=== PATIENT | female | born 1940 | race Caucasian/White ===

== ENCOUNTER 2016-08-07 07:18 | Emergency (ER) | payer OTHER ==
[~2016-08-07 07:18] MED LIST: BACLOFEN20 MG PO; BG MC; COL250 PO; COUMADIN2 MG PO; COUMADIN5 MG PO; ECO81 PO; GLU500 PO; GLUCOVANCE1 TA2 PO; HUMULIN R100 U/1 M1 SC; HYD25 PO; HYDROCHLOROTH12.5 M2 PO; L20I IV; LIPI10 PO; LIPI20 PO; LOV30I SC; LYRICA50 M1 PO; MAC100 PO; MAG PO; NIFEDICAL XL30 MG PO; NIFEDIPINE ER30 MG PO; NORCO1 TA2 PO; OMEPRAZOLE DR20 M1 PO; OMEPRAZOLE PO; ZES20 PO; ZESTRIL20 MG PO; [UNRECOGNIZED DRUG - OTHER] PO
[2016-08-07 08:36] VITALS: BP 135/45
== END 2016-08-07 08:36 | disposition home or self-care (01) ==
LOC: ED 07:18
DX: M25.512 Pain in left shoulder (principal); M50.30 Other cervical disc degeneration, unspecified cervical region; M19.90 Unspecified osteoarthritis, unspecified site; I48.91 Unspecified atrial fibrillation; E11.9 Type 2 diabetes mellitus without complications; I10 Essential (primary) hypertension; Z79.84 Long term (current) use of oral hypoglycemic drugs; Z79.01 Long term (current) use of anticoagulants
CPT/HCPCS: Q0092

== ENCOUNTER 2017-01-10 10:53 | Emergency (ER) | payer OTHER ==
[2017-01-10 13:33] VITALS: BP 122/52
== END 2017-01-10 13:33 | disposition home or self-care (01) ==
LOC: ED 10:53
DX: M50.10 Cervical disc disorder with radiculopathy, unspecified cervical region (principal); M25.511 Pain in right shoulder; R91.8 Other nonspecific abnormal finding of lung field; I10 Essential (primary) hypertension; E11.9 Type 2 diabetes mellitus without complications; E78.00 Pure hypercholesterolemia, unspecified; M19.90 Unspecified osteoarthritis, unspecified site; Z95.0 Presence of cardiac pacemaker; Z79.899 Other long term (current) drug therapy; Z86.79 Personal history of other diseases of the circulatory system; Z79.01 Long term (current) use of anticoagulants
CPT/HCPCS: Q0092

== ENCOUNTER 2018-02-10 16:08 | Emergency (ER) | payer OTHER ==
[~2018-02-10] VITALS: Ht 149.9 cm; Wt 42.2 kg
[2018-02-10 16:29] VITALS: Ht 149.9 cm; Wt 42.2 kg
[2018-02-10 18:33] LABS: BASOPHIL % 0.4 % (0-2); RED CELL DISTRIBUTION WIDTH 14.3 % (11.5-14.5)
[2018-02-10 18:37] LABS: UA SPECIFIC GRAVITY 1.025 (1.005-1.035); microscopic required? YES; urine erythrocyte 1+ (NEGATIVE)
[2018-02-10 18:37] LABS: PLATELET COUNT 467 x10^3mcL (130-400)
[2018-02-10 19:02] LABS: ALKALINE PHOSPHATASE 88 U/L (46-116); AST/SGOT 31 U/L (15-37); BILIRUBIN TOTAL 0.17 mg/dL (0.20-1.00); CALCIUM 8.9 mg/dL (8.5-10.1); CARBON DIOXIDE 26.3 mmol/L (21-32); CHLORIDE SERUM 103 mmol/L (98-107); CREATININE SERUM 1.8 mg/dL (0.6-1.0); GLUCOSE SERUM 119 mg/dL (74-106); POTASSIUM SERUM 4.2 mmol/L (3.5-5.1); SODIUM SERUM 139 mmol/L (136-145); TOTAL PROTEIN, SERUM 7.2 g/dL (6.4-8.2)
[2018-02-10 19:04] LABS: ALBUMIN 3.2 g/dL (3.4-5.0)
[2018-02-10 19:18] VITALS: BP 127/47
[2018-02-10 19:29] LABS: ALT/SGPT 40 U/L (14-59)
== END 2018-02-10 20:33 | disposition home or self-care (01) ==
LOC: ED 16:08
PROVIDERS: Emergency Medicine
DX: R42 Dizziness and giddiness (principal); D68.32 Hemorrhagic disorder due to extrinsic circulating anticoagulants; I48.91 Unspecified atrial fibrillation; N28.9 Disorder of kidney and ureter, unspecified; I10 Essential (primary) hypertension; E11.9 Type 2 diabetes mellitus without complications; E78.00 Pure hypercholesterolemia, unspecified; M19.90 Unspecified osteoarthritis, unspecified site; Z86.73 Personal history of transient ischemic attack (TIA), and cerebral infarction without residual deficits
CPT/HCPCS: 36415; J8597; Q0162

== ENCOUNTER 2018-10-24 11:43 | Inpatient (IN) | payer OTHER, MEDICAID ==
[~2018-10-24] VITALS: Ht 124.5 cm; Wt 43.1 kg
[2018-10-24 11:55] VITALS: Ht 124.5 cm; Wt 43.1 kg
[2018-10-24 12:35] LABS: BASOPHIL % 0.1 % (0-2)
[2018-10-24 12:38] LABS: PLATELET COUNT 458 x10^3mcL (130-400); RED CELL DISTRIBUTION WIDTH 19.5 % (11.5-14.5)
[2018-10-24 12:40] LABS: ALBUMIN 3.5 g/dL (3.4-5.0); ALKALINE PHOSPHATASE 127 U/L (46-116); ALT/SGPT 105 U/L (14-59); AST/SGOT 42 U/L (15-37); BILIRUBIN TOTAL 0.16 mg/dL (0.20-1.00); CARBON DIOXIDE 21.8 mmol/L (21-32); CHLORIDE SERUM 108 mmol/L (98-107); CREATININE SERUM 1.3 mg/dL (0.6-1.0); GLUCOSE SERUM 129 mg/dL (74-106); SODIUM SERUM 140 mmol/L (136-145); TOTAL PROTEIN, SERUM 7.1 g/dL (6.4-8.2)
--- NOTE | 2018-10-24 12:40 | NUR ---
PT PRESENTS TO BED 11 FOR EVALUATION OF WEAKNESS AND LOW HGB PER NOTE SENT BY PMD; PT HAD HGB OF 8.5 FROM PREVIOUS LAB DRAWS; PT SON HERE STATES PT HAS BEEN FEELING "WEAK/BAD" ON AND OFF FOR ABOUT 3 WEEKS; PROVIDER AT BEDSIDE FOR INTERVIEW AND FURTHER STUDIES
[2018-10-24 12:45] LABS: POTASSIUM SERUM 5.8 mmol/L (3.5-5.1)
--- NOTE | 2018-10-24 12:55 | NUR ---
PT ORDERS REC'D; PT RECTAL EXAM NOTED TO BE NEG FOR TALYA BLOOD WITH GUIAC NEG; WAITING ON FURTHER LAB RESULTS
--- NOTE | 2018-10-24 13:15 | NUR ---
REC'D RESULT OF ELEVATED K: 5.8, ED PROVIDER AWARE; HOSPITALIST AT BEDSIDE
--- NOTE | 2018-10-24 14:50 | NUR ---
BED ASSIGNMENT REC'D; PT TO CT PRIOR TO GOING TO FLOOR, IVF COMPLETED
--- NOTE | 2018-10-24 14:57 | NUR ---
PT STEPHANIE CT WELL.WAITING FOR TRANSPORT
--- NOTE | 2018-10-24 15:05 | NUR ---
REPORT GIVEN TO VERONIKA PARK, INFORMED OF 5.8 POTASSIUM AND THAT ED PROVIDER AND HOSPITALIST IS AWARE OF VALUE AND ARE NOT TREATING IT AT THIS TIME; PT PREP FOR TRANSPORT
[2018-10-24] MEDS ORDERED: NOR10 PO (15:18)
[2018-10-24] MEDS ORDERED: LASIX40 MG PO (15:21)
[2018-10-24] MEDS ORDERED: ULTRAM50 MG PO (15:22)
[2018-10-24] MEDS ORDERED: GLIPIZIDE5 M2 PO (15:22)
[2018-10-24] MEDS ORDERED: ZESTRIL20 MG PO (15:23)
[2018-10-24] MEDS ORDERED: LIPITOR20 MG PO (15:23)
[2018-10-24 16:01] VITALS: BP 135/40
--- NOTE | 2018-10-24 16:12 | NUR ---
RECEIVED PT FROM ER, PT ADMIT FOR ANEMIA, PT IS A/OX4 VERBAL RESPONSIVE, LUNG SOUND CLEAR BILATERAL, NO COUGH, NO SOB, PT IS ON TELE 13, 100% PACED. NRS. DENY ANY CHEST PAIN OR DISCOMFORT, BOWEL SOUND PRESENT ALL 4 QUADRANTS, NO DISTENTION, NO TENDER. PEDAL PULSE PRESENT BOTH FEET, NO EDEMA, IV AT RIGHT FA, NO LEAKING, NO INFILTRAITON. ALL ADLS ASSIST, ALL NEED MET, CALL LIGHT IN REACH, WILL CONTINUE TO MONITOR.
[2018-10-24 17:04] LABS: UA SPECIFIC GRAVITY <=1.005 (1.005-1.035); microscopic required? YES; urine erythrocyte NEGATIVE (NEGATIVE)
--- NOTE | 2018-10-24 17:39 | NUR ---
AT 1615 - TOOK OVER CARE OF PATIENT. IV INFUSION OF NS COMMENCED AT 50 ML/HR. PATIENT ASSISTED TO BATHROOM TO VOID. AMBULATORY WITH ASSISTANCE. PATIENT GIVEN VELTASSA 8.4 G PER EMAR FOR K+ OF 5.8 AT 1630 - URINE COLLECTED AND TAKEN TO LAB FOR UA. AT 1720 - RECEIVED CALL FROM DR RAMSEY WITH THE FOLLOWING ORDERS: - CONSENT FOR EGD AND COLONOSCOPY - CLEAR LIQUID DIET TONIGHT. - DULCOLAX 5 MG X 3 TAB PO NOW. - MOVI-PREP, FIRST PART NOW. - AFTER 6 HOURS, GIVE SECOND PART MOVIPREP. PATIENT IS TO DRINK DRINK WATER PER INSTRUCTIONS ON MOVIPREP PACKET. - DULCOLAX 5 MG X 3 TAB PO,, 6 HRS AFTER WITH SECOND PART OF MOVIPREP. - NPO AFTER 0400 HR. - EGD AND COLONOSCOPY AT 1000 HR TOMORROW. AT 1750 - SPOKE WITH PATIENT'S SON AND EXPLAINED TO HIM PLAN. HE WILL BE IN WITHIN THE HOUR FOR CONSENT SIGNING. SPOKE WITH PATIENT USING [place] DRUM REEL CUTTER. EXPLAINED TO PATIENT PLAN OF CARE.
--- NOTE | 2018-10-24 19:08 | NUR ---
CONSENTS FOR EGD, COLONOSCOPY AND MODERATE SEDATION SIGNED BY PATIENT AND SON. SON WAS TRANSLATING IN [place]EL[place]. PATIENT GIVEN DULCOLAX TABLETS AND MOVI PREP COMMENCED. WILL ENDORSE CARE TO NIGHT NURSE.
--- NOTE | 2018-10-24 19:30 | NUR ---
RECIEVEED PATIENT AT START OF SHIFT A/O X4, UKRAINIAN SPEAKING, FAMILY AT BEDSIDE TO TRANSLATE. ON TELE 13, 100% PACED. NO SOB ON RA, LUNGS CTAB. PATIENT IS DRINKING FIRST DOSE OF BOWEL PREP, SECOND DOSE DUE AT 0200 10/24. BEDISDE COMMODE PROVIDED FOR PATIENT PER REQUEST. IV TO RH IS INFUSING WITHOUT ERYTHEMA OR INFILTRATION. BED LOCKED AND IN LOWEST POSITION. CALL LIGHT AND BEDSIDE TABLE WITHIN REACH. SAFETY AND USE OF CALL LIGHT REINFORCED.
[2018-10-24 21:13] VITALS: BP 143/42
--- NOTE | 2018-10-24 21:30 | NUR ---
BLOOD SUGAR 162, INSULIN HELD DUE TO NPO STATUS.
--- NOTE | 2018-10-25 02:18 | NUR ---
PATIENT GIVEN SECOND DOSE OF BOWEL PREP.
--- NOTE | 2018-10-25 04:00 | NUR ---
SECOND BOWEL PREP COMPLETED. PATIENT NPO STATUS AT THI TIME.
[2018-10-25 05:56] VITALS: BP 164/50
--- NOTE | 2018-10-25 06:27 | NUR ---
PATIENT SLEPT INTERMITTENTLY THROUGH THE NIGHT WITH FREQUENT LOOSE STOOLS. DENIES PAIN AT THIS TIME. IV INFUSING WITHOUT ERYTHEMA OR INFILTRATION. NPO SINCE 0400. EGD/ COLONOSCOPY TODAY AT 1000. CONSENT FOR PROCEDURE AND ANESTHESIA IS SIGNED AND IN CHART. PRE-OP CHECKLIST COMPLETED. BED LOCKED AND IN LOWEST POSIITON. CALL LIGHT AND BEDSIDE TABLE WITHIN REACH. WILL ENDORSE CARE TO DAY SHIFT NURSE.
[2018-10-25 07:36] LABS: CALCIUM 9.5 mg/dL (8.5-10.1); CHLORIDE SERUM 116 mmol/L (98-107); CREATININE SERUM 0.9 mg/dL (0.6-1.0); GLUCOSE SERUM 151 mg/dL (74-106); PHOSPHOROUS 4.1 mg/dL (2.5-4.9); POTASSIUM SERUM 4.9 mmol/L (3.5-5.1); SODIUM SERUM 146 mmol/L (136-145)
[2018-10-25 07:55] LABS: BASOPHIL % 0.2 % (0-2)
[2018-10-25 07:56] LABS: PLATELET COUNT 415 x10^3mcL (130-400); RED CELL DISTRIBUTION WIDTH 19.4 % (11.5-14.5); rbc morphology (normal/abnorm) ABNORMAL (NORMAL)
--- NOTE | 2018-10-25 08:13 | NUR ---
AAO TIMES 4. TELE # 13 DEMAND PACER, OCCASIONALLY PACING. LUNGS CTA. NO SOB. O2 SAT N RA 98%. BS'S ACTIVE TIMES 4. PATIENT STATES HER STOOLS ARE CLEAR, AND HER PREP IS COMPLETE FOR EGD/COLONSCOPY. CONSENTS SIGNED. PERIPHERAL PULSES PALPABLE. NO EDEMA. NO C/O PAIN. NO SOB.
[2018-10-25 08:16] VITALS: BP 136/51
[2018-10-25 09:13] LABS: TOTAL IRON BINDING CAPACITY 420 ug/dL (250-450)
[2018-10-25 09:18] LABS: IRON 12 ug/dL (50-170)
[2018-10-25 11:55] VITALS: BP 140/56
[2018-10-25 16:49] VITALS: BP 136/52
--- NOTE | 2018-10-25 18:37 | NUR ---
AAO TIMES 4. TELE # 13 JUNCTIONAL WITH DEMAND PACING. VS'S STABLE. NO SOB. COOPERTIVE. NO C/O PAIN. WATCHING TV. TOLERATED DINNER, REG DIET. IV SITE RFA 20 HERBERT PATENT, CDI.
--- NOTE | 2018-10-25 19:00 | NUR ---
RECEIVED PT FROM DAY SHIFT RN. PT ALERT AND ORIENTED TO PERSON PLACE TIME AND SITUATION. LEBANESE SPEAKING AND CURRENTLY RESTING IN BED. PT DENIES CHEST PAIN, SHORTNESS OF BREATH ON ROOM AIR. BREATHING IS EVEN AND UNLABORED. PT DENIES DIZZINESS, HEADACHE, AND IS AMBULATORY TO BEDSIDE COMMODE WITHOUT ASSIST. INSTRUCTED PT TO CALL IF FEELING DIZZY OR LIGHTHEADED AND IF SHE NEEDS ASSISTANCE WITH AMBULATING. BOWEL SOUNDS ARE ACTIVE X4. PT DENIES ABD PAIN AT THIS TIME. TELE #[address] SAFETY MEASURES ARE IN [place]CE. BED IS IN THE LOWEST POSITION. CALL LIGHT IS WITHIN REACH. WILL CONTINUE TO MONITOR PT.
[2018-10-25 20:36] VITALS: BP 126/67
--- NOTE | 2018-10-26 00:43 | NUR ---
PT RESTING IN BED WITH EYES CLOSED. NO FACIAL GRIMMACING NOTED. BREATHING IS EVEN AND UNLABORED. CALL LIGHT IS WITHIN REACH.
[2018-10-26 05:34] VITALS: BP 153/57
[2018-10-26 07:00] LABS: CALCIUM 8.9 mg/dL (8.5-10.1); CARBON DIOXIDE 16.6 mmol/L (21-32); CHLORIDE SERUM 115 mmol/L (98-107); CREATININE SERUM 0.8 mg/dL (0.6-1.0); GLUCOSE SERUM 122 mg/dL (74-106); POTASSIUM SERUM 4.7 mmol/L (3.5-5.1); SODIUM SERUM 144 mmol/L (136-145)
--- NOTE | 2018-10-26 07:39 | NUR ---
AAO TIMES 4. TELE # 13 DEMAND PACING, RATE 80'S. LUNGS CTA. NO SOB. O2 SAT ON RA 97%. BS'S ACTIVE TIMES 4. BETTS WITH SLIGHT GENERALIZED WEAKNESS. PERIPHERAL PULSES PALPABLE. NO EDEMA. NO C/O PAIN. NO SOB. VS'S STABLE.
[2018-10-26 07:59] LABS: BASOPHIL % 0.3 % (0-2); PLATELET COUNT 382 x10^3mcL (130-400)
[2018-10-26 08:50] LABS: RED CELL DISTRIBUTION WIDTH 19.3 % (11.5-14.5)
[2018-10-26 08:52] LABS: rbc morphology (normal/abnorm) ABNORMAL (NORMAL)
--- NOTE | 2018-10-26 09:01 | NUR ---
Nutrition Note: Nursing trigger received for poor PO intake >3 days on 10/26/18. Pt. admitted with anemia per H and P documentations. No reported GI distress and PO intake 50-80% x 5 meals. Based on nutritional screening, pt. does not meet high risk criteria and will be assessed as low risk with initial assessment due 11/02/18.
[2018-10-26 09:25] VITALS: BP 134/48
[2018-10-26 13:17] VITALS: BP 131/43
--- NOTE | 2018-10-26 15:13 | NUR ---
ONE UNIT OF PRBC WAS STARTED AT 1220 FOR H&H OF 6.9/21, HELLEN WAS MADE AWARE AND SHE ORDERED ONE UNIT. NO TRANFUSION REACTIONS NOTED, VS'S REMAINED STABLE. THE UNIT FINISHED AT 1500, AND A CBC WAS ORDERED FOR 1600 PER HELLEN DUNCAN SODA WORKER ORDERS.
[2018-10-26 16:02] LABS: BASOPHIL % 0.6 % (0-2); PLATELET COUNT 329 x10^3mcL (130-400)
[2018-10-26 16:05] LABS: RED CELL DISTRIBUTION WIDTH 20.9 % (11.5-14.5)
[2018-10-26 16:14] LABS: rbc morphology (normal/abnorm) ABNORMAL (NORMAL)
[2018-10-26 16:16] LABS: ovalocyte/elliptocyte 1+; tear drop cell (dacryocyte) 1+
[2018-10-26 17:47] VITALS: BP 161/48
--- NOTE | 2018-10-26 17:49 | NUR ---
AAO TIMES 4. TELE # 13 SR. VS'S STABLE. NO SOB. NO C/O PAIN. HER SON IS PRESENT, SUPPORTIVE. IV SITE RFA CDI. COOPERATIVE.
--- NOTE | 2018-10-26 20:00 | NUR ---
PT A/A/O X4. DENIES DIZZINESS AND HEADACHE THUS FAR. BREATH SOUNDS CLEAR. BREATHING EVEN AND UNLABORED ON ROOM AIR. DENIES CHEST PAIN AND PRESSURE. BOWEL SOUNDS ACTIVE. NO C/O N/V AND ABDOMINAL PAIN. ADMITS TO GENERALIZED WEAKNESS IMPROVING. IV INTACT ON THE RIGHT FOREARM INFUSING WITH NS AT 50 ML/HR. MADE PT COMFORTABLE. PLACED CALL LIGHT WITH IN REACH. WILL CONTINUE TO MONITOR.
[2018-10-26 20:48] VITALS: BP 143/57
--- NOTE | 2018-10-27 00:54 | NUR ---
PT RESTING WITH EYES CLOSED. NO DISTRESS AND DISCOMFORT NOTED. WILL CONTINUE TO MONITOR.
[2018-10-27 05:26] VITALS: BP 166/61
--- NOTE | 2018-10-27 06:00 | NUR ---
PT BLOOD PRESSURE 166/61. GAVE PT 0900 SCHEDULED HYDROCHLOROTHIAZIDE PO RIGHT NOW. PT TOLERATED IT WELL. WILL ENDORSE TO THE AM NURSE ACCORDINGLY. .
[2018-10-27 07:22] LABS: BASOPHIL % 0.3 % (0-2); PLATELET COUNT 379 x10^3mcL (130-400)
[2018-10-27 07:29] LABS: RED CELL DISTRIBUTION WIDTH 20.3 % (11.5-14.5)
[2018-10-27 07:45] VITALS: BP 156/39
[2018-10-27 07:53] LABS: CALCIUM 9.3 mg/dL (8.5-10.1); CARBON DIOXIDE 18.7 mmol/L (21-32); CHLORIDE SERUM 114 mmol/L (98-107); CREATININE SERUM 0.8 mg/dL (0.6-1.0); GLUCOSE SERUM 107 mg/dL (74-106); POTASSIUM SERUM 4.4 mmol/L (3.5-5.1); SODIUM SERUM 145 mmol/L (136-145)
[2018-10-27 09:02] VITALS: BP 156/39
--- NOTE | 2018-10-27 10:09 | NUR ---
PATIENTS IV TO R ARM, INFILTRATED AT THIS TIME. ASSESSED AND FLUSHED AMD NOT PATENT. PATIENTS ARM ELEVATED AT THIS TIME, AND IV RESTARTED TO RFA. IV PATENT AND FLUSHES WELL. WILL CONTINUE TO MONITOR.
--- NOTE | 2018-10-27 10:34 | NUR ---
PATIENT STATED THAT THEIR ARM WAS IN PAIN. IV ASSESSED AND ARM SWOLLEN. IV REMOVED AND AR ELEVATED. PT STABLE, WILL CONTINUE TO MONITOR.
[2018-10-27] MEDS ORDERED: FER300 PO (11:46)
[2018-10-27] MEDS ORDERED: COL100 PO (11:53)
[2018-10-27 12:27] VITALS: BP 167/41
[2018-10-27 12:54] VITALS: BP 156/39
--- NOTE | 2018-10-27 14:18 | NUR ---
PATIENT DISCHARGE INSTRUCTIONS GIVEN AT THIS TIME. PATIENTS NEW PRESCRIPTION PROVIDED AND EDUCATED ON MEDICATIONS TO CONTINUE TO USE. DISCHARGE FORMS SIGNED AND PLACED IN PATIENTS CHART AT THIS TIME. PATIENTS IV AND TELE REMOVED AT THIS TIME. PATIENT IS FREE OF ANY SIGNS OF DISTRESS. PATIENT GAVE UNDERSTANDING AND HAD NO QUESTIONS AT THIS TIME. PATIENTS BELONGINGS WITH PATIENT AT THIS TIME. PATIENT STABLE, WILL CONTINUE TO MONITOR AND DISCHARGE AT THIS TIME.
== END 2018-10-27 14:33 | disposition home or self-care (01) | DRG 377 ==
LOC: ED 11:43 → MU 13:29 → DU 13:29
PROVIDERS: Emergency Medicine; Internal Medicine; ADMIT Internal Medicine
PROC: 0DBL8ZX Excision of Transverse Colon, Via Natural or Artificial Opening Endoscopic, Diagnostic (ICD-10-PCS; 2018-10-25)
PROC: 0DB68ZX Excision of Stomach, Via Natural or Artificial Opening Endoscopic, Diagnostic (ICD-10-PCS; principal; 2018-10-25 11:00)
PROC: 0DBP8ZX Excision of Rectum, Via Natural or Artificial Opening Endoscopic, Diagnostic (ICD-10-PCS; 2018-10-25 11:00)
PROC: 30233N1 Transfusion of Nonautologous Red Blood Cells into Peripheral Vein, Percutaneous Approach (ICD-10-PCS; 2018-10-26)
DX: K29.61 Other gastritis with bleeding (principal); N17.0 Acute kidney failure with tubular necrosis; E11.9 Type 2 diabetes mellitus without complications; M19.90 Unspecified osteoarthritis, unspecified site; E78.00 Pure hypercholesterolemia, unspecified; I10 Essential (primary) hypertension; K62.1 Rectal polyp; K63.5 Polyp of colon; K57.30 Diverticulosis of large intestine without perforation or abscess without bleeding; R62.7 Adult failure to thrive; D64.9 Anemia, unspecified; Z95.2 Presence of prosthetic heart valve; Z95.0 Presence of cardiac pacemaker; Z86.73 Personal history of transient ischemic attack (TIA), and cerebral infarction without residual deficits; Z79.01 Long term (current) use of anticoagulants; Z79.84 Long term (current) use of oral hypoglycemic drugs
CPT/HCPCS: 43235; 45378; 82962; G0378; J1200; J1610; J1815; J2250; J2310; J2916; J3010; J3490; J7030; J7050; P9016; Q0092

== ENCOUNTER 2018-11-01 21:32 | Inpatient (IN) | payer OTHER ==
[~2018-11-01] VITALS: Ht 149.9 cm; Wt 41.4 kg
[~2018-11-01 21:32] MED LIST changes: +COL100 PO; +FER300 PO; +GLIPIZIDE5 M2 PO; +LASIX40 MG PO; +LIPITOR20 MG PO; +NOR10 PO; +ULTRAM50 MG PO
--- NOTE | 2018-11-01 22:04 | NUR ---
PT IN ED FOR VOMITTING X1 TODAY, AND PER DAUGHTER PT HAS NOT BEEN ACTING NORMAL SINCE LAST NIGHT. PER DAUGHTER PT WAS ADMITTED HERE LAST WEEK AND HAS BEEN ON NEW MEDICATION, IRON PILLS, STOOL SOFTENER, AND PER ABD FOR UTI. PT STS NO CP, NO NEURO DEFICITS.
[2018-11-01 22:34] LABS: CALCIUM 10.1 mg/dL (8.5-10.1); CARBON DIOXIDE 20.9 mmol/L (21-32); CHLORIDE SERUM 105 mmol/L (98-107); CREATININE SERUM 1.3 mg/dL (0.6-1.0); GLUCOSE SERUM 111 mg/dL (74-106); POTASSIUM SERUM 5.3 mmol/L (3.5-5.1); SODIUM SERUM 140 mmol/L (136-145)
[2018-11-01 22:36] LABS: BASOPHIL % 0.2 % (0-2); PLATELET COUNT 400 x10^3mcL (130-400)
[2018-11-01 22:39] LABS: ALKALINE PHOSPHATASE 133 U/L (46-116); ALT/SGPT 48 U/L (14-59); AST/SGOT 22 U/L (15-37); BILIRUBIN TOTAL 0.2 mg/dL (0.20-1.00); LIPASE 576 IU/L (73-393); TOTAL PROTEIN, SERUM 7.4 g/dL (6.4-8.2)
[2018-11-01 22:41] LABS: ALBUMIN 3.3 g/dL (3.4-5.0)
[2018-11-01 22:51] LABS: rbc morphology (normal/abnorm) ABNORMAL (NORMAL)
[2018-11-01 22:52] LABS: acanthocyte (spur cell) 1+; schistocyte (helmet cell) 1+
--- NOTE | 2018-11-01 23:35 | NUR ---
PT IN POSITIONF OF COMFORT, RESP E/U, NO DISTRESS.
--- NOTE | 2018-11-01 23:42 | NUR ---
REPORT GIVEN TO XAVIER WAN TO ASSUME CARE.
--- NOTE | 2018-11-02 00:07 | NUR ---
PT AAO4, RESP E/U, NO DISTRESS. AWAITING ADMIT ORDERS AT THIS TIME.
--- NOTE | 2018-11-02 01:05 | NUR ---
PT AAO4, RESP E/U, NO DISTRESS.
--- NOTE | 2018-11-02 01:35 | NUR ---
PATIENT RECEIVED FROM ED VIA [facility] ACCOMPANIED BY EMT ALONG WITH SON ROJAS AVILA WHICH PROVIDED US WITH PERTINENT INFORMATION AND HISTORY .PATIENT ASSISTED COMFORTABLY IN BED,GOWNED AND VITAL TAKEN. PATIENT AND SON ACQUIANTED TO BEDSIDE EQUIPMENTS AND UNIT POLICIES, CALL LIGHT PLACED IN REACH AND SAFETY/FALL PRECAUTIONS INITIATED. HEPLOCK WITH IVF CONNECTED REGULATED TO IV PUMP, SITE CLEAR NO SIGN OF REDNESS NOR INFILTRATION.PER SON ROJAS- REASON FOR ADMISSION WAS WORSENING AND INCREASING WEAKNESS SINCE LAST ADMISSION 3 DAYS AGO AND HAD VOMITED AT HOME YELLOW FLUIDS, POOR APPETITE LATELY, WAS PREVIOUSLY ADMITTED HERE D/T ANEMIA AND WAS ADVICED AND ORDERED TO STOP BLOOD THINNER.WAS AT PCP OFFICE LAST SATURDAY AND WAS INFORMED THAT HER H&H DROPPED 2 POINTS AND INSTRUCTED SON TO WATCH AND MONITOR PATIENT. TODAY PORCELAIN SLUSHER WEAKNESS AND DIZZINESS HAD GOTTEN WORSE THATS WHY THEY SEEKED MEDICAL INTERVENTION. PACER TO LEFT UPPER CHEST. PT COMPLAINED OF DULL ARTHRITIC NECK PAIN WILL ENDORSE COMPLAINT TO ASSIGNED NURSE REBEL-XAVIER.
[2018-11-02 01:44] VITALS: BP 162/53
[2018-11-02 02:00] LABS: MAGNESIUM 2.2 mg/dL (1.8-2.4); PHOSPHOROUS 4.5 mg/dL (2.5-4.9)
[2018-11-02 02:01] LABS: CHOLESTEROL/HDL RATIO 2.3
[2018-11-02 02:10] LABS: FREE T4 1.47 ng/dL (0.76-1.46); FREE THYROXINE INDEX 3.8 ug/dL (1.4-4.5); T4(THYROXINE) 10.8 ug/dL (4.7-13.3)
[2018-11-02 04:26] LABS: T3 TOTAL 0.86 ng/mL
--- NOTE | 2018-11-02 05:24 | NUR ---
RECEIVED REPORT FROM ADMITTED NURSE XAVIER WOODS. PT COOPERATIVE AND CALM. PT SLEPT AT INTERVALS DURING THE NIGHT. BREATHING EVEN AND UNLABORED ON RA. NO ACUTE DISTRESS NOTED. IV RUNNING TO RAC. SITE FREE FROM REDNESS ANS SWELLING. ALL NEEDS ASSESSED AND ATTENDED TO. BED AT LOWEST SETTING. SIDE RAILS X2 UP. CALL LIGHT WITHING REACH. WILL ENDORSE CARE TO AM NURSE.
[2018-11-02 05:45] VITALS: BP 151/73
--- NOTE | 2018-11-02 07:25 | NUR ---
RECEIVED HAND OFF REPORT FROM NIGHT NURSE. PATIENT LAYING SUPINE IN BED AT THIS TIME. WITH IV INFUSING TO LEFT AC, SITE WNL. PATIENT DANISH SPEAKING ONLY BUT WITH NIGHT NURSE TRANSLATING PATIENT STATED SHE HAD NO COMPLAINTS A THIS TIME. REQUESTED TO USE RESTROOM. PLACED YELLOW SLIP RESISTANT SOCKS ON PATIENT AND ASSITED TO RESTROOM. GAIT SLOW AND SLIGHTLY UNSTEADY. COLLECTED URINE SAMPLE A THIS TIME. PATIENT ASSITED BACK TO BED. BED ALARM ON AT THIS TIME. URINE TAKEN TO LAB
[2018-11-02 08:12] VITALS: BP 153/50
[2018-11-02 08:24] LABS: ALKALINE PHOSPHATASE 123 U/L (46-116); ALT/SGPT 38 U/L (14-59); AST/SGOT 18 U/L (15-37); BILIRUBIN TOTAL 0.19 mg/dL (0.20-1.00); CALCIUM 9.2 mg/dL (8.5-10.1); CARBON DIOXIDE 20.6 mmol/L (21-32); CHLORIDE SERUM 110 mmol/L (98-107); CREATININE SERUM 1.1 mg/dL (0.6-1.0); GLUCOSE SERUM 137 mg/dL (74-106); POTASSIUM SERUM 5.1 mmol/L (3.5-5.1); SODIUM SERUM 143 mmol/L (136-145); TOTAL PROTEIN, SERUM 6.4 g/dL (6.4-8.2)
[2018-11-02 08:43] LABS: ALBUMIN 2.8 g/dL (3.4-5.0)
--- NOTE | 2018-11-02 08:50 | NUR ---
ADMINSITERED MEDICATION PER MAR. PATIENT FAMILY AT BEDSIDE. NO INCIDENTS AT THIS TIME. NO COMPLAINTS FROM PATIENT. CALL LIGHT WITHIN REACH, WILL CONTINUE TO MONITOR
[2018-11-02 08:57] LABS: microscopic required? YES; urine erythrocyte NEGATIVE (NEGATIVE)
--- NOTE | 2018-11-02 10:29 | NUR ---
LISINOPROL ADDED TO JUN. BLOOD PRESSURE PRIOR 128/50, MEDICATION ADMINSTERED PER JUN. CALL LIGHT IS WITHIN REACH OF PATIENT, BED ALARM IS ON, FAMILY IS NO LONGER AT BEDSIDE. WILL CONTINUE TO MONITOR
[2018-11-02 10:30] LABS: AMPHETAMINE QUAL UR NONE DETECTED (See below)
--- NOTE | 2018-11-02 11:05 | NUR ---
PATIENT VISTED BY CARE TEAM. ASSESSED PATIENT AND STATED THAT THEY WANT TO CONTINUE WITH TREATMENTS OF FLUIDS AND ADVANCING DIET NEEDED. I UPDATED PATIENT FAMILY MEMEBRS AND ADDRESSED QUESTIONS THAT AROSE.
--- NOTE | 2018-11-02 11:47 | NUR ---
PATIENT BG RESULT WAS 339, NO INSULIN CONVERAGE GIVEN A THIS TIME BECAUSE PATIENT IS NPO FOR US ABD. WILL RECHECK AFTER PROCEDURE WHEN ABLE TO EAT
[2018-11-02 13:23] LABS: BASOPHIL % 0.4 % (0-2); PLATELET COUNT 340 x10^3mcL (130-400)
[2018-11-02 13:46] LABS: RED CELL DISTRIBUTION WIDTH 22.8 % (11.5-14.5)
--- NOTE | 2018-11-02 14:29 | NUR ---
NOTIFIED ULTRA SOUND THAT PATIENT DID NOT HAVE LUNCH. US TECH WILL BE IN AT 230 TO DO ULTRASOUND. TECH REQUESTED TO HOLD PO MEDS UNTIL AFTER SCAN. INFORMED PATIENT AND SON. SON REPORTING THAT PATIENT IS FEELING WEAKER THAN NORMAL. HE STATED THAT HE HELPED THE PATIENT WALK TO THE BATHROOM WHERE SHE ALMOST FELL. I TURNED ON BED ALARM AND INSTRUCTED PATIENT TO USE CALL LIGHT FOR HELP FROM STAFF IF NEEDING TO GET UP. PATIENT TO USE BED MORAN AT THIS TIME
--- NOTE | 2018-11-02 16:14 | NUR ---
ADMINISTERED MEDICATION PER MAR. US COMPLETED SO PATIENT US CONTINUING LIQID DIET. AT AT THIS TIME. TOLLERATING WELL. BG 154, COVERED WITH 3U INSULIN. CALL LIGHT WITHIN REACH, SON IN ROOM WILL CONTINUE TO MONITOR
[2018-11-02 16:44] VITALS: BP 153/52
--- NOTE | 2018-11-02 19:30 | NUR ---
RECEIVED REPORT FROM AN NURSE. PT LAYING DOWN IN BED WITH EYES CLOSED. PT AAOX3, REORIENTED TO PLACE. MED-SURG, DENIES CP/PREESSURE AT THIS TIME. PALPABLE PULSES TO BLE AND BUE. NO EDEMA NOTED. LUNG SOUNDS CTA ON RA. BREATHING EVEN AND UNLABORED. ABD SOFT AND NONDISTENDED. ACTIVE BOWEL SOUND X4 QUAD. DENIES N/V/D. LAST BM 10/31/18. VOIDS FREELY BRP. GENERALIZED WEAKNESS. AMBULATORY WITH ASSIST. NS RUNNING TO RAC AT 100ML/HR. SITE FREE FROM REDNESS ANS SWELLING. BE AT LOWEST SETTIN G. BED ALARM ON. SIDE RAILS X2 UP. CALL LIGHT MELQUIADES REACH. WILL CONTINUE TO MONITOR.
[2018-11-02 20:31] VITALS: BP 154/51
--- NOTE | 2018-11-03 00:59 | NUR ---
PT AWAKE LAYING DOWN IN BED. BREATHING EVEN AND UNLABORED ON RA. NO ACUTE DISTRESS NOTED. C/O WEAKNESS. INSTRUSTED TO STAY IN BED AND USE CALL LIGHT FOR HELP AT ALL TIMES. PT STATES UNDERSTANDING. BED AT LOWEST SETTING. BED ALARM ON. CALL LIGHT WITHING REACH. WILL CONTINUE TO MONITOR.
--- NOTE | 2018-11-03 04:02 | NUR ---
PT C/O 01/15 H/A DESCRIBED THROBBING. PT BP 183/63, HR 80. PT MEDICATED WITH PRN ULTRAM FOR H/A PER JUN. DR NERI AWARE OF PT BP. AWAITING FOR ORDER FOR HYDRALIZINE. WILL CONTINUE TO MONITOR.
[2018-11-03 05:48] VITALS: BP 158/57
[2018-11-03 06:35] LABS: BASOPHIL % 0.5 % (0-2); PLATELET COUNT 351 x10^3mcL (130-400)
--- NOTE | 2018-11-03 06:40 | NUR ---
PT SLEPT AT INTERVALS THROUGHOUT THE NIGHT. C/O HER WEAKNESS IS GETTING WORSE. INSTRUCTED TO STAY IN BED AND CALL FOR HELP AT ALL TIMES. BP REASSESED AFTER MEDICATED FOR PAIN WITH PRN ULTRAM. BP 154/55, HR 72. ALL NEEDS ASSESSED AND ATTENDED TO. NO ACUTE DISTRESS NOTED. NS RUNNING TO RAC AT 100ML/HR. SITE FREE FORM REDNESS AND SWELLING. BED AT LOWEST SETTING. SIDE RAILS X2 UP. BED ALARM ON. CALL LIGHT WITHING REACH. WILL ENDORSE CARE TO AM NURSE.
[2018-11-03 06:41] LABS: RED CELL DISTRIBUTION WIDTH 22.7 % (11.5-14.5)
[2018-11-03 06:59] LABS: ALKALINE PHOSPHATASE 114 U/L (46-116); ALT/SGPT 44 U/L (14-59); AST/SGOT 22 U/L (15-37); BILIRUBIN TOTAL 0.18 mg/dL (0.20-1.00); CALCIUM 9.1 mg/dL (8.5-10.1); CARBON DIOXIDE 18.1 mmol/L (21-32); CHLORIDE SERUM 116 mmol/L (98-107); CREATININE SERUM 0.9 mg/dL (0.6-1.0); GLUCOSE SERUM 136 mg/dL (74-106); POTASSIUM SERUM 4.1 mmol/L (3.5-5.1); SODIUM SERUM 149 mmol/L (136-145); TOTAL PROTEIN, SERUM 6.4 g/dL (6.4-8.2)
[2018-11-03 07:04] LABS: ALBUMIN 2.8 g/dL (3.4-5.0)
--- NOTE | 2018-11-03 07:40 | NUR ---
RECEIVED PT IN BED. ASSESSED AND DOCUMENTED. DENIES ANY PAIN. STABLE. SAFTEY PRECAUTIONS ARE IN PLACE. WILL MONITOR.
[2018-11-03 09:38] VITALS: BP 187/53
--- NOTE | 2018-11-03 10:30 | NUR ---
INFORMED ABOUT PT BP 187/53 WITH MAP 97. AM BP MEDICINES GIVEN. WILL RECHECK BP.
--- NOTE | 2018-11-03 14:00 | NUR ---
RECHECKED BP IS 174/52. INFORMED ABOUT THAT AND NO NEW ORDER RECEIVED THIS TIME. PT RESTING IN BED. DENIES ANY PAIN.
--- NOTE | 2018-11-03 14:37 | NUR ---
Recommendations: 1. Add Ensure Enlive TID w/ each meal.
--- NOTE | 2018-11-03 14:37 | NUR ---
Initial Nutrition Assessment: (217-B) LUANNE TORRES 78F Dx: Pancreatitis, dehydration PMHx: HTN, DM, cerebrovascular accident: 2 TIAs, hypercholesterolemia, Arthritis, AV block (s/p pacemaker insertion), AVR on warfarin 1-2 mg/d, Colecystitis (s/p cholecystectomy 4 yrs ago) PSHx: Colecystectomy (4yrs ago), AVR (s/p pacemaker insertion) Labs: Na 149 H, BG 136 H, A1c 6.5 H, BUN 25 H, Alb 2.8 L, Bili T 0.18 L, LDH 226 H, HDL 68 H, Amylase 122 H, Lipase 194 WNL, BNP 301.08 H, Meds: Colace, Humulin, Hydrochlorothiazide, Lipitor, Pepcid, Prilosec, Zestril, Zofran Diet: Full Liquid PO intake since admission: ~70% Ht: 59 in Wt: 91# BMI: 18.4 Bed scale: 89.1# IBW: 95# %IBW: 96% UBW: 95# Age: 78 Food Allergies: NKFA Skin: Chase: 18 Edema: None noted GI: Last BM: 10/31 Note (11/03): Nursing trigger received for N/V/D >3d, admitted w/ potential risk Dx, poor PO >3d. Consult received for malnutrition. Pt Beninese speaking only. Visited pt bedside, pt's son in room feeding Ensure Enlive strawberry to pt, spoke w/ son and RN, adequate Mexican translation. Son states pt has very poor appetite, RN states ~10% PO. Son and RN states received Ensure Enlive on tray r/t poor PO. Pt eating very little spoon fulls of Ensure fed to her, continually encouraged by son. Spoke w/ son regarding Ensure, agreeable to continue to receive w/ each meal. Spoke w/ Dr Zimmerman regarding ONS, confirmed. Will enter noursihment Ensure Enlive TID w/ each meal in computrition. Problem with: N/V/D/C: No Problems with: Chewing: No Swallowing: No Current appetite: Poo Recent wt change: N/A %wt change: N/A Vitamin/Supplement use: No Special diet at home: Regular Physical activity: None Nutrition education given (specify specific nutrition education and handout given): None given at this time. Food-drug interactions? Education given? None given at this time. Estimated Nutritional Needs Based on current body weight (41 kg) Energy: 3762-2356 kcal/day (35-40 kcal/kg for malnutrition/wt gain) Protein: 49-57 g/day (1.5-2.0 g/kg for malnutrition, preserve lean body mass) Fluid: 3224-9379 mL/day (1 mL/kcal for dehydration) or per MD Nutrition Diagnosis: Malnutrition r/t , poor appetite, poor PO intake, medical condition AEB reported PO intake ~10% per RN, BMI 18.4, . Intervention 1. Add Ensure Enlive TID w/ each meal. Monitor/Evaluate Goal: PO intake at least 75% of estimated needs Monitor: PO intake, Labs, GI function F/U in 2-3 days as high risk 11/05-11/06
--- NOTE | 2018-11-03 15:16 | NUR ---
PT C/O ABD PAIN AND SHE VOMITED MODERATE AMOUNT. INFORMED ABOUT THAT AND HE SAID TO GIVE TYLENOL PO ORDERED AND ZOFRAN IV. ZOFRAN GIVEN BUT PT IS NOT TAKING TYLENOL PO, SHE IS OPENING HER MOUTHAND TOUNGE OUT AND NOT DRINKING WATER AND TRYONG TO SPIT THE PILL OUT. SHOWED ABOUT THAT AND HE ORDERING CT HEAD AND ABD. PT BP IS 193/49, INFORMED ABOUT THAT. NO NEW ORDER RECEIVED THIS TIME.
[2018-11-03 16:00] LABS: BASOPHIL % 1.5 % (0-2); PLATELET COUNT 379 x10^3mcL (130-400); RED CELL DISTRIBUTION WIDTH 22.3 % (11.5-14.5)
--- NOTE | 2018-11-03 16:25 | NUR ---
RECHECKED PT BP 125/49 AND BS IS 76. PT IS SLEEPING THIS TIME.
--- NOTE | 2018-11-03 16:35 | NUR ---
AWARE ABOUT CT ABD AND CT HEAD RESULT. PT TRANSFER TO TELEMETRY. CHARGE NURSE AWARE. ASSIGNMENT CHANGED. GAVE REPORT TO XAVIER MAYORGA. PT IS STABLE.
[2018-11-03 16:38] LABS: CALCIUM 9.1 mg/dL (8.5-10.1); CARBON DIOXIDE 18.6 mmol/L (21-32); CHLORIDE SERUM 116 mmol/L (98-107); CREATININE SERUM 0.9 mg/dL (0.6-1.0); GLUCOSE SERUM 106 mg/dL (74-106); POTASSIUM SERUM 3.9 mmol/L (3.5-5.1); SODIUM SERUM 148 mmol/L (136-145)
--- NOTE | 2018-11-03 16:40 | NUR ---
RECEIVED PATEINT FROM XAVIER GARCIA, FOR CONTINUE CARE. PATIENT LETHARGIC, AROUSABLE, CONFUSING. PATIENT HAS PACE MAKER TO LT CHEST WALL. TELE #3 APPLIED PER ORDER. 1ST DEGREE AVB/BB/PVC/PACED; HR = 80. B/P = . IVF OF NS 100CC/HR PER ORDER. ZOFRAN 2MG IVP AND TORADOL 30MG IVP GIVEN PER ORDER.
[2018-11-03 16:44] LABS: ALKALINE PHOSPHATASE 120 U/L (46-116); ALT/SGPT 43 U/L (14-59); AST/SGOT 20 U/L (15-37); BILIRUBIN TOTAL 0.11 mg/dL (0.20-1.00); TOTAL PROTEIN, SERUM 6.6 g/dL (6.4-8.2)
[2018-11-03 16:45] LABS: ALBUMIN 2.7 g/dL (3.4-5.0)
--- NOTE | 2018-11-03 17:05 | NUR ---
16 FR MARIA INSERTION GIVEN BY [facility] SHOTBLAST EQUIPMENT OPERATOR UNDER INSTRUCTOR. 700CC OF YELLOWISH URINE MEASURE. URINE SPECIMEN COLLECTED
--- NOTE | 2018-11-03 17:20 | NUR ---
NEW IV INSERTED TO LFA WITH 20 G NEEDLE.
--- NOTE | 2018-11-03 17:44 | NUR ---
DR. DOMINGUEZ AWARE OF PATIENT HEART RHYTEN AND PATIENT HAS PACE MAKER TO L CHEST WALL.
--- NOTE | 2018-11-03 17:56 | NUR ---
NEW IVF OF D5NS 80CC/HR PER ORDER.
[2018-11-03 18:06] LABS: microscopic required? YES; urine erythrocyte TRACE (NEGATIVE)
[2018-11-03 18:22] VITALS: BP 164/49
--- NOTE | 2018-11-03 19:00 | NUR ---
PATIENT LETHARGIC. OPENED EYES W/ VERBRAL STIMULI. ENDORSED CARE TO NOC NURSE.
--- NOTE | 2018-11-03 19:30 | NUR ---
PT RESTING IN BED WITH FAMILY AT BEDSIDE, ASSESSMENT PERFORMED, PT IS CONFUSED, A/OX1 TO PERSON, AROUABLE TO TACTILE STIMULI, AND PROVIDES GARBLED SPEECH, PT DENIES PAIN, NO SOB NOTED, DR AWARE OF CURRENT NEURO STATUS. SAFETY PRECAUTIONS IN PLACE, WILL CONTINUE TO MONITOR.
--- NOTE | 2018-11-03 20:30 | NUR ---
PT RESTING IN BED WITH FAMILY AT BEDSIDE, PT IS A/O X 1 TO PERSON, PT IS LETHARGIC, PERRL BRISK RESPONSE, PT AROUSABLE TO TACTILE STIMULI, DOES NO FOLLOW COMMANDS, SAFETY PRECAUTIONS IN PLACE, WILL CONTINUE TO MONITOR
[2018-11-03 21:29] VITALS: BP 132/48
--- NOTE | 2018-11-03 21:30 | NUR ---
PT RESTING IN BED, A/OX 1 TO PERSON, AROUSABLE TO VERBAL STIMULI, DOES NOT FOLLOW COMMANDS, PT SPEECH IS GARBLED, PERRL, FAMILY AT BEDSIDE, SAFETY PRECAUTION IN PLACE, WILL CONTINUE TO MONITOR.
--- NOTE | 2018-11-03 22:30 | NUR ---
PT A/O X 1 TO PERSON, AROUSABLE TO TACTILE STIMULI, CONFUSED, SPEECH GARBLED, PERRL, SAFETY PRECAUTIONS IN PLACE, WILL CONTINUE TO MONITOR
--- NOTE | 2018-11-03 22:38 | NUR ---
TELE NEURO CONSULT INITIATED PT SEEN BY DR ORTIZ, AT BEDSIDE FOR DURATION OF CONSULT WILL AWAIT DR RECOMENDATIONS AND ORDERS
--- NOTE | 2018-11-04 00:20 | NUR ---
PT RESTING IN BED WITH EYES CLOSED, AROUSABLE TO VERBAL STIMULI, PT IS CONFUSED, SPEECH IS CLEAR, DENIE PAIN OR SOB AT THIS TIME SAFETY PRECAUTIONS IN PLACE, WILL CONTINUE TO MONITOR
--- NOTE | 2018-11-04 02:34 | NUR ---
PT RESTING IN BED ASKING FOR WATER, DR HOBBS MADE AWARE, SAID SHE CAN HAVE SMALL SIPS WITH THICKENER, PROVIDED WATER WITH THICKENER, PT TOOK SMALL SIPS, TOLERATED WELL, AFETY PRECAUTIONS IN PLACE, WILL CONTINUE TO MONITOR
--- NOTE | 2018-11-04 04:02 | NUR ---
PT RESTING IN BED WITH EYES CLOSED, EASILY AROUSABLE TO VERBAL STIMULI, PT IS A/OX1 PT IS CONFUSED, SPEECH IS SLOW BUT CLEAR, PERRL, DOES NOT FOLLOW COMMANDS, SYMETRICAL SMILE, ALL NEEDS ATTENDED TO SAFETY PRECAUTIONS IN PLACE, WILL CONTINUE TO MONITOR
--- NOTE | 2018-11-04 05:24 | NUR ---
PT REMAINED CONFUSED THROUGH THE NIGHT, BUT WAS MORE ALERT THE SHIFT WENT ON, PT HAD TELE NEURO CONSULT PERFORMED AND IRVIN CARTER CONFIRED WITH RESIDENT OVERSEEING CARE ABOUT RECOMENDATIONS, PT DENIED PAIN THROUGH SHIFT, PT HAD NO SOB THROUGH NIGHT. SAFETY PRECAUTIONS IN PLACE, WILL CONTINUE TO MONITOR
[2018-11-04 05:41] VITALS: BP 149/44
[2018-11-04 06:33] LABS: BASOPHIL % 0.4 % (0-2); PLATELET COUNT 338 x10^3mcL (130-400)
[2018-11-04 07:09] LABS: RED CELL DISTRIBUTION WIDTH 22.3 % (11.5-14.5)
[2018-11-04 07:14] LABS: CALCIUM 8.6 mg/dL (8.5-10.1); CARBON DIOXIDE 19.7 mmol/L (21-32); CHLORIDE SERUM 116 mmol/L (98-107); CREATININE SERUM 0.9 mg/dL (0.6-1.0); GLUCOSE SERUM 244 mg/dL (74-106); POTASSIUM SERUM 3.9 mmol/L (3.5-5.1); SODIUM SERUM 148 mmol/L (136-145)
--- NOTE | 2018-11-04 08:00 | NUR ---
SHIFT ASSESSMENT DONE. PATIENT AWAKE/ALERT. ORIENTED TO PERSON. SPEECH CLEAR. ABLE TO MADE NEEDS KNOWN. TELE#3; SR; HR = 72. PACE MAKER TO L CHEST WALL. LUNG SOUND CLEAR. NO RESP DISTRESS ON RA. O2 SAT 98%. MARIA PATENT W/ YELLOWISH URIN EOUTPUT. ABD FLAT/SOFT. NO C/O ELLE NOW. NPO PER ORDER. PATIENT ABLE TO TAKE MEDS WITH APPLE SAUCE. IVF OF D5NS 80CC/HR. IV TO RAC LEAKING AND D/C'D. IV SITE TO LFA INTACT. GENERAL WEAKNESS. BED RESTING. REPOSIITON PATIEN TQ2H. [facility].
[2018-11-04 09:09] VITALS: BP 186/55
--- NOTE | 2018-11-04 09:15 | NUR ---
PT WAS SEEN FOR DYSPHAGIA. PT WAS ABLE TO SAFELY SWALLOW PUREE DIET WITH THIN LIQUID WITHOUT S/S OF ASPIRATION. PT HAD MILD DIFFICULTY WITH MASTICATION SKILLS FOR MS DIET DUE TO WEAKNESS. RECOMMENDATION PUREE DIET WITH THIN LIQUID SMALL BITES AND SIPS ONLY. 1:1 SUPERVISION
[2018-11-04 10:04] LABS: burr cell (echinocyte) 1+; ovalocyte/elliptocyte 1+; rbc morphology (normal/abnorm) ABNORMAL (NORMAL)
[2018-11-04 12:43] VITALS: BP 142/39
--- NOTE | 2018-11-04 14:56 | NUR ---
BLADDER TRAINAING GIVEN.
[2018-11-04 18:03] VITALS: BP 154/77
--- NOTE | 2018-11-04 18:58 | NUR ---
PATIENT ALERT. TALKING AND MADE NEEDS KNOWN. FINISHED 20% OF PUREED DIET BY FEEDING, LIQUID INTAKE 760 CC THIS SHIFT. URINE OUT PUT 900 CC VIA MARIA. NO BM THIS SHIFT. LAST BM WAS 11/02 PER PATIENT'S SON. NO S/S OF PAIN NOW. PATIENT REPOSITIONED Q2H OR PRN. ENDORSED CARE TO NOC NURSE.
--- NOTE | 2018-11-04 20:00 | NUR ---
Awake and verbally responsive. No respiratory distress noted on room air. Denies pain. Denies n/v. Will cont.to monitor. Call light within reach.
[2018-11-04 21:15] VITALS: BP 147/43
[2018-11-05] VITALS (7 sets, daily range): BP systolic 150–168; BP diastolic 35–58
--- NOTE | 2018-11-05 04:32 | NUR ---
Afebrile. No significant change in condition noted. Denies abd'l.pain. Denies n/v. In no apparent distress.
[2018-11-05 06:42] LABS: CALCIUM 8.1 mg/dL (8.5-10.1); CARBON DIOXIDE 19.8 mmol/L (21-32); CHLORIDE SERUM 114 mmol/L (98-107); CREATININE SERUM 0.8 mg/dL (0.6-1.0); GLUCOSE SERUM 197 mg/dL (74-106); MAGNESIUM 1.5 mg/dL (1.8-2.4); POTASSIUM SERUM 3.5 mmol/L (3.5-5.1); SODIUM SERUM 144 mmol/L (136-145)
[2018-11-05 07:10] LABS: BASOPHIL % 0.4 % (0-2); PLATELET COUNT 373 x10^3mcL (130-400)
--- NOTE | 2018-11-05 07:39 | NUR ---
RECIVED HAND OFF REPORT FROM NIGHT NURSE. PATIENT FOUND LAYING SUPINE IN BED, AWAKE AND RESPONSIVE. PATIENT MONTSERRATIAN SPEAKING ONLY, NOT COMPLAINING OF PAIN AT THIS TIME. WILL CONTINUE TO MONITOR. CALL [facility] WITHIN REACH
[2018-11-05 07:45] LABS: RED CELL DISTRIBUTION WIDTH 22.5 % (11.5-14.5)
[2018-11-05 07:46] LABS: rbc morphology (normal/abnorm) ABNORMAL (NORMAL)
--- NOTE | 2018-11-05 09:06 | NUR ---
ADMINISTERED MEDICATION PER JUN. SON AT BEDSIDE. CALL [facility], WILL CONTINUE TO MONITOR
--- NOTE | 2018-11-05 12:05 | NUR ---
ADMINSITERED MEDICATION PER JUN. BG RESULT WAS 232 COVERED WITH 6U INSULIN PER SLIDING SCALE. PATIENT COMPLAINING OF PAIN TO THE RIGHT HAND. SWELLING AND HEAT SEEN IN RIGHT HAND. POSSIBLE COMPLICATION FROM IV INFILTRATION ON PREVIOUS SHIFTS. ARM ELEVATED AND ICE APPLIED. PATIENT POSTION TURNED. CALL [facility] REACH, FAMILY [facility] IN ROOM. WILL CONTINUE OT TR
--- NOTE | 2018-11-05 13:12 | NUR ---
PATIENT VISUALIZED SITTING UP IN BED. ASSISTED PATIENT TO EAT APPLE SAUCE PER REQUEST. FAMILY MEMEBR ASSISTED PATIENT TO EAT LUNCH TRAY. PATIENT REQUESTING TO REST AT THIS TIME. HOB LOWERED TO 30 DEGREES. CALL [facility] WITHIN REACH
--- NOTE | 2018-11-05 13:44 | NUR ---
Follow-up Nutrition Assessment: 217/B LUANNE TORRES HR Dx: Pancreatitis, dehydration PMHx: HTN, DM, CVA: 2 TIAs, Arthritis, and AV block s/p pacemaker insertion, s/p aortic valve replacement on warfarin 1-2 mg/day, Cholecystitis s/p cholecystectomy 4 years ago Labs: (11/05): BG 197H, CA 8.1L, MG 1.5L, A1C 6.5H Meds: Colace, D 5%, D 50%, Ferrous sulfate, humulin, Lipitor, zofran Diet: Puree (CCHO) with thin liquids. PO Intake: (11/05) breakfast (puree) 100%, (11/04) NPO Weights: (11/02) 41 kg, (11/05) 42 kg Skin: intact Chase: 16 I/Os: (11/05) 2700/1450 (1250) Edema: none GI: passed swallow eval, feeding assistance needed Last BM: 11/02 RDN Visit (11/05): Patient was alert and oriented with son at bedside, Son helped in american translation. Patient ate some of her breakfast this morning and does not have any N/V at this time. Patient said that her appetite is poor. She is willing to consume Glucerna ONS. Patient appeared underweight and malnourished. Estimated Nutritional Needs based on current body weight (41 kg) Energy: 7165-8524 kcal/d (35-40 kcal/kg) Protein: 61- 82 g/d (1.5-2.0 g/kg) Fluid: 2946-3607 (1ml/kcal) or per MD Nutrition Diagnosis 1. Malnutrition related to poor appetite , poor PO, medical condition as evidenced by reported PO ~10% per RN, BMI 18.4 (ongoing) Intervention 1. Recommend continuing puree diet with Glucerna BID. Monitor/Evaluate Goal: Have pt meet at least 75% of estimated needs Monitor: PO intake, Labs, GI function F/U in 2-3 days as high risk 11/07-
--- NOTE | 2018-11-05 13:44 | NUR ---
1. Recommend continuing puree diet with Glucerna BID.
--- NOTE | 2018-11-05 13:59 | NUR ---
PATIETN FELT SLIGHT WARM TO TOUCH, TEMP RESULT 102.9, COOLING MEASURES IMPLIMENTED. BLANKETS REMOVED, ICE APPLIED TO HEAD AND BILATERAL AUXILLARY, AC UNIT IN ROOM TUNRED ON. PATIENT RESTING AT THIS TIME. TYLENOL PRN ADMINISTERED. CALL LIHGT WITHIN REACH, FAMILY AT BEDSIDE
--- NOTE | 2018-11-05 15:47 | NUR ---
PT SAW PATIENT, SAT PATIENT UP AT SIDE OF BED, REPORTED PAIN IN LEGS WITH DECREASED RANGE OF MOTION. PATIENT BACK INTO BED, CALL LIGHT WITHIN REACH
--- NOTE | 2018-11-05 16:07 | NUR ---
PATIENT VISUALIZED LAYING SUPINE IN BED AT THIS TIME. EYES CLOSED, BREATHING REGULAR AND UNLABORED. NO ACUTE DISTRESS APPARENT. CALL LIGHT ON BED WITHIN REACH, WILL CONTINUE TO MONITOR
--- NOTE | 2018-11-05 16:57 | NUR ---
BG RESULT 275, ADMINSITED 9U INSULIN PER MAR. PATIENT FAMILY NOW AT BEDSIDE. PATIENT COMPLAINING OF PAIN TO RIGHT HAND AND REQUESTED ICE PACK BUT NO PAIN MEDICATION. CALL LIGHT WITHIN REACH, WILL CONTINUE TO MONITOR
--- NOTE | 2018-11-05 19:00 | NUR ---
PATIENT RESTING AT THIS TIME WITH FAMILY AT BEDSIDE. CALL LIGHT WITHIN REAC WILL ENDORSE TO NIGHT NURSE
--- NOTE | 2018-11-05 19:30 | NUR ---
RECEIVED PT FROM DAY SHIFT RN. PT ALERT AND ORIENTED X2, FORGETFUL. PT DENIES HAYES/DIZZINESS. TELE #3 SR WITH DEPRESSED T WAVE. PT HAS A PACEMAKER TO LEFT UPPER CHEST. PT DENIES CHEST PAIN OR PRESSURE. LUNG SOUNDS CTA ON RA. NO SIGNS OF DISTRESS NOTED. EDEMA NOTED TO PT RIGHT ARM, PAINFUL WHEN TOUCHED. PT HAS A F/C IN PLACE DRAINING YELLOW URINE. IV LFA PATENT. NO SIGNS OF ACUTE DISTRESS. CALL BUTTON WITHIN REACH. SAFETY PRECAUTIONS IN PLACE. FAMILY AT BEDSIDE. WILL CONTINUE TO MONITOR.
--- NOTE | 2018-11-05 21:20 | NUR ---
PT REPORTED HAVING RIGHT HAND PAIN, REQUESTING FOR TYLENOL. MEDICATED PER EMAR. WILL MONITOR.
--- NOTE | 2018-11-05 23:18 | NUR ---
PER CENTRAL SUPPLY CLERK PT HAD THREE RUNS OF VTACH. PT DENIES CHEST PAIN/PRESSURE. VS STABLE. DR NERI MADE AWARE. NO NEW ORDERS AT THIS TIME.
--- NOTE | 2018-11-06 00:46 | NUR ---
PT AWAKE. BREATHING EVEN AND UNLABORED WITH NO SIGNS OF DISTRESS NOTED. PT DENIES ANY PAIN. CALL BUTTON WITHIN REACH. SAFETY PRECAUTIONS IN PLACE. WILL CONTINUE TO MONITOR.
--- NOTE | 2018-11-06 04:42 | NUR ---
PT SLEPT POORLY THROUGHOUT THE NIGHT. PT BREATHING EVEN AND UNLABORED WITH NO SIGNS OF DISTRESS. PT IV INFUSING WELL, WITH NO SIGNS OF INFILTRATION NOTED. F/C IN PLACE DRAINING YELLOW URINE. BLADDER TRAINING IN PROGRESS. PT ABLE TO REPOSITIONED AND ASSISTED PT TO TURN AND REPOSITION Q2HRS AND NEEDED. MEDICATED PER EMAR. CALL BUTTON WITHIN REACH. SAFETY PRECAUTIONS IN PLACE. WILL CONTINUE TO MONITOR AND ENDORSE CARE TO DAY SHIFT RN.
[2018-11-06 05:44] VITALS: BP 164/45
[2018-11-06 06:45] VITALS: BP 158/53
--- NOTE | 2018-11-06 07:30 | NUR ---
RECEIVED PT FROM BACK HAND RN. A/OX1. TAKES PT AWHILE TO RECALL MEMORY. PT FORGETFUL AT TIMES. TELE#3. RESPIRATIONS EQUAL AND UNLABORED ON RA. DENIES SOB. MARIA CATHETER IN PLACE DRAINING YELLOW URINE. CLAMPED MARIA PER BLADDER TRAINING ORDER. PT POSITIONSED ON LEFT SIDE. PT DENIES ANY PAIN AT THIS TIME. IV TO LFA PATENT AND INFUSING. NO REDNESS OR SWELLING NOTED. WILL CONTINUE TO MONITOR. CALL LIGHT IN REACH. BED IN LOWEST POSITION.
--- NOTE | 2018-11-06 07:31 | NUR ---
PT AWAKE IN NO SIGNS OF DISTRESS. ENDORSED CARE TO DAY SHIFT RN, ALL QUESTIONS ADDRESSED.
[2018-11-06 07:35] LABS: CALCIUM 8.1 mg/dL (8.5-10.1); CARBON DIOXIDE 20.7 mmol/L (21-32); CHLORIDE SERUM 111 mmol/L (98-107); CREATININE SERUM 0.8 mg/dL (0.6-1.0); GLUCOSE SERUM 235 mg/dL (74-106); MAGNESIUM 1.7 mg/dL (1.8-2.4); POTASSIUM SERUM 3.3 mmol/L (3.5-5.1); SODIUM SERUM 141 mmol/L (136-145)
[2018-11-06 07:56] LABS: PLATELET COUNT 340 x10^3mcL (130-400); RED CELL DISTRIBUTION WIDTH 22.2 % (11.5-14.5)
[2018-11-06 07:57] LABS: BASOPHIL % 0 % (0-2)
[2018-11-06 08:17] VITALS: BP 160/60
--- NOTE | 2018-11-06 10:25 | NUR ---
PT SITTING UP IN BED. PULLED PT UP IN BED. REPOSITIONED PT ON RT SIDE. SON AT BEDSIDE. PT STATES SHE DOES NOT FEEL THE URGE TO PEE, MARIA CATHETER UNCLAMPED. GIVEN PO MEDS WITH APPLE SAUCE. PT TOLERATED WELL. SPOKE WITH HELLEN ELLIS REGARDING IV FLUIDS AND ELEVATED BLOOD SUGAR. PER HELLEN WILL CHANGE IV FLUIDS TO NS AT 50 ML/HR. WILL CONTINUE TO MONITOR. CALL LIGHT IN REACH. BED IN LOWEST POSITION.
[2018-11-06 11:38] VITALS: BP 149/58
--- NOTE | 2018-11-06 12:37 | NUR ---
PT SITTING UP IN BED. NO ACUTE RESP DISTRESS NOTED ON RA. PT IV TO LFA INFILTRATED. IV TO LAC STARTED 20G. FLUSHED WELL. NO REDNESS OR SWELLING NOTED. GIVEN PO MEDS. TOLERATED WELL. BLOOD SUGAR CHECKED WAS 285. GIVEN 9 UNITS OF REGULAR INSULIN PER SLIDDING SCALE. WILL CONTINUE TO MONITOR. CALL LIGHT IN REACH. BED IN LOWEST POSITION.
--- NOTE | 2018-11-06 15:08 | NUR ---
PHYSICAL THERAPY DAILY NOTES CO-SIGN All documentation done by the Wool Hanker for 11/06/18 has been reviewed. I agree with the documentation. Reviewed/Co-Signed by: Kianna Dykes PT Documentation Done by:ALBIN GRAHAM PTA
[2018-11-06 15:46] VITALS: BP 147/46
--- NOTE | 2018-11-06 18:00 | NUR ---
PT SITTING UP IN BED. NO ACUTE RESP DISTRESS NOTED ON RA. GIVEN PO MEDS. TOLERATED WELL. IV PATENT AND INFUSING. NO REDNESS OR SWELLING NOTED. BLOOD SUGAR CHECKED WAS 198. GIVEN 3 UNITS OF REGULAR INSULIN PER SLIDING SCALE. FAMILY AT BEDSIDE EMPTIED 1750 OF CLEAR YELLOW URINE FROM MARIA CATHETER. MARIA CARE PROVIDED. WILL CONTINUE TO MONITOR. CALL LIGHT IN REACH. BED IN LOWEST POSITION.
--- NOTE | 2018-11-06 19:30 | NUR ---
RECEIVED PT FROM DAY SHIFT RN. PT ALERT AND ORIENTED X2, FORGETFUL. PT DENIES HAYES/DIZZINESS. TELE #3 SR. PT HAS A PACEMAKER TO LEFT UPPER CHEST. PT DENIES CHEST PAIN OR PRESSURE. LUNG SOUNDS CTA ON RA. NO SIGNS OF DISTRESS NOTED. EDEMA NOTED TO PT RIGHT ARM. PT HAS A F/C IN PLACE DRAINING YELLOW URINE. IV LAC PATENT. NO SIGNS OF ACUTE DISTRESS. CALL BUTTON WITHIN REACH. SAFETY PRECAUTIONS IN PLACE. FAMILY AT BEDSIDE. WILL CONTINUE TO MONITOR.
--- NOTE | 2018-11-06 20:00 | NUR ---
PT MAGNESIUM LEVEL 1.7, DR NERI MADE AWARE. NO NEW ORDER AT THIS TIME.
[2018-11-06 20:46] VITALS: BP 152/44
--- NOTE | 2018-11-06 20:51 | NUR ---
PT AFIB ON HEART MONITOR VS STABLE. PT DENIES CHEST PAIN OR PRESSURE. DR NERI MADE AWARE. NO NEW ORDERS AT THIS TIME.
[2018-11-06 21:39] VITALS: Ht 149.9 cm; Wt 41.4 kg
--- NOTE | 2018-11-06 23:15 | NUR ---
DR NERI MADE AWARE OF EKG RESULT.
--- NOTE | 2018-11-07 00:11 | NUR ---
PT RESTING. BREATHING EVEN AND UNLABORED WITH NO SOB NOTED. NO SIGNS OF DISTRESS. CALL BUTTON WITHIN REACH. SAFETY PRECAUTIONS IN PLACE. WILL MONITOR.
--- NOTE | 2018-11-07 05:10 | NUR ---
PT SLEPT POORLY THROUGHOUT THE NIGHT. PT BREATHING EVEN AND UNLABORED WITH NO SIGNS OF DISTRESS. PT IV INFUSING WELL, WITH NO SIGNS OF INFILTRATION NOTED. F/C IN PLACE DRAINING YELLOW URINE. PT ABLE TO REPOSITIONED AND ASSISTED PT TO TURN AND REPOSITION Q2HRS AND NEEDED. MEDICATED PER EMAR. CALL BUTTON WITHIN REACH. SAFETY PRECAUTIONS IN PLACE. WILL CONTINUE TO MONITOR AND ENDORSE CARE TO DAY SHIFT RN.
[2018-11-07 05:59] VITALS: BP 171/31
[2018-11-07 06:16] VITALS: BP 157/34
[2018-11-07 06:18] LABS: BASOPHIL % 0.4 % (0-2); PLATELET COUNT 313 x10^3mcL (130-400)
[2018-11-07 06:53] LABS: CALCIUM 8.2 mg/dL (8.5-10.1); CARBON DIOXIDE 23.7 mmol/L (21-32); CHLORIDE SERUM 110 mmol/L (98-107); CREATININE SERUM 0.7 mg/dL (0.6-1.0); GLUCOSE SERUM 223 mg/dL (74-106); POTASSIUM SERUM 3.4 mmol/L (3.5-5.1); SODIUM SERUM 143 mmol/L (136-145)
--- NOTE | 2018-11-07 07:10 | NUR ---
RECEIVED BEDSIDE REPORT FROM SENIOR LIBRARIAN NURSE. PATIENT IS STABLE NO APPARENT SIGNS OF PAIN, SOB, OR RESPIRATORY DISTRESS. ON ROOM AIR. ON TELE 3. IV TO LFA IS INTACT. NO EDEMA OR ERYTHEMA NOTED TO SITE. MARIA CATH IN PLACE DRAINING YELLOW URINE. PATIENT IS CONFUSED ALERT AND ORIENTED TO PERSON ONLY. QUESTIONS AND CONCERNS ADDRESSED, SAFETY RPECAUTIONS IN PLACE.
--- NOTE | 2018-11-07 07:15 | NUR ---
PYSICAL ASSESSMENT COMPLETED PLEASE SEE PROBLEM FOCUSED CARE FOR DETAILS.
--- NOTE | 2018-11-07 07:32 | NUR ---
PT RESTING. NO SIGNS OF DISTRESS NOTED. ENDORSED CARE TO DAY SHIFT RN, ALL QUESTIONS ADDRESSED.
--- NOTE | 2018-11-07 07:56 | NUR ---
PAGED TABLE HAND TO MAKE AWARE POTASSIUM LEVEL 3.4, CALCIUM LEVEL 8.2 WBC 14.4. MD IS AWARE NO FURTHER ORDERS AT THIS TIME.
[2018-11-07 08:45] VITALS: BP 164/107
--- NOTE | 2018-11-07 09:22 | NUR ---
ADMINISTERED MEDICATION PER EMAR. PATIENT EDUCATED ON NEED FOR MEDICATION, ASWELL ADVERSE EFFECTS TO REPORT. PATIENT VERBALIZED UNDERSTANIDING. QUESTIONS AND CONCERNS ADDERSSED, SAFETY PRECAUTIONS IN PLACE.
--- NOTE | 2018-11-07 10:30 | NUR ---
PHYSICAL THERAPY AT BEDSIDE.
[2018-11-07 10:43] VITALS: BP 157/34
--- NOTE | 2018-11-07 10:44 | NUR ---
P.T. NOTES PATIENT REFUSED TO BE SEEN BY P.T., STATES NOT FEELING UP FOR IT, FAMILY PRESENT IN ROOM ALSO STATES PATIENT WILL BE LEAVING TO SNF TODAY.
--- NOTE | 2018-11-07 11:57 | NUR ---
Follow-up Nutrition Assessment: 217T/B BRIAN LUANNE FU HR Dx: Pancreatitis, dehydration PMHx: HTN, DM, CVA: 2 TIAs, Arthritis, and AV block s/p pacemaker insertion, s/p aortic valve replacement on warfarin 1-2 mg/day, Cholecystitis s/p cholecystectomy 4 years ago Labs: (11/07): K 3.4L, BG 223H, CA 8.2L, MG 1.7L, A1C 6.5H, WBC 14.4H Meds: Colace, D 5%, D 50%, Ferrous sulfate, humulin, Lipitor, zofran Diet: Puree (CCHO) with thin liquids. PO Intake: (11/07) breakfast 25%, (11/06) lunch 40%, breakfast 80% Weights: (11/02) 41 kg, (11/05) 42 kg, (11/07) Skin: intact Chase: 17 I/Os: (11/07) 2860/2325 (535) Edema: R hand edema GI: feeding assistance needed Last BM: 11/02 RDN Visit (11/07): Patient was awake with son at bedside. Patient has poor PO and does not want to consume oral nutritional supplements. Patient will be going to SNF for physical therapy per progress note. Estimated Nutritional Needs based on current body weight (41 kg) Energy: 2911-6348 kcal/d (35-40 kcal/kg) Protein: 61- 82 g/d (1.5-2.0 g/kg) Fluid: 9412-9873 (1ml/kcal) or per MD Nutrition Diagnosis 1. Malnutrition related to poor appetite , poor PO, medical condition as evidenced by reported PO ~25% per RN, BMI 18.4 (ongoing) Intervention 1. Recommend continuing puree diet with Glucerna BID. Monitor/Evaluate Goal: Have pt meet at least 75% of estimated needs Monitor: PO intake, Labs, GI function F/U in 2-3 days as high risk 11/09-
--- NOTE | 2018-11-07 11:57 | NUR ---
1. Recommend continuing puree diet with Glucerna BID.
[2018-11-07 13:30] VITALS: BP 170/42
--- NOTE | 2018-11-07 13:33 | NUR ---
PATIENT IS STABE, NO APPARENT SIGNS OF PAIN, SOB, OR RESPIRATORY DISTRESS. PATIENT IS CONFUSED AND FORGETFUL. EASY TO REORIENT. COOPERATIVE WITH NURSING CARE. PATIENT DEINES OTHER NEEDS AT THIS TIME. CALL LIGHT AND PHONE WITHIN REACH. BED IN LOW POSITION. QUESTIONS AND CONCERNS ADDRESSED. SAFETY PRECAUTIONS IN PLACE.
--- NOTE | 2018-11-07 14:39 | NUR ---
PHYSICAL THERAPY DAILY NOTES CO-SIGN All documentation done by the Float Tender for 11/07/18 has been reviewed. I agree with the documentation. Reviewed/Co-Signed by: Kianna Dykes PT Documentation Done by:ALBIN GRAHAM PTA
[2018-11-07 15:12] LABS: rbc morphology (normal/abnorm) ABNORMAL (NORMAL)
--- NOTE | 2018-11-07 15:39 | NUR ---
SPOKE WITH CLIENT EXPERIENCE CONSULTANT BRUCE RECEIVED TELEPHONE READBACK ORDER TO DC MARIA CATH AND IV. BOTH MARIA CATH AND IV DC'ED.
--- NOTE | 2018-11-07 15:48 | NUR ---
CALLED KARLENE TO GIVE REPORT. REPORT GIVEN TO XAVIER DAVIS.
--- NOTE | 2018-11-07 16:24 | NUR ---
PATIENT IS STABLE NO APPARENT SIGNS OF PAIN SOB OR RESPIRATORY DISTRESS. PATIENT DENIES OTHER NEEDS AT THIS TIME. CRYSTALSEAN MCCLENDON IS HERE TO TRANSFER PATIENT TO [facility]. IV REMOVED, MARIA CATH REMOVED. TELE MONITOR #3 REMOVED AND RETURNED. ALL PERSONAL BELONGINGS WITH PATIENT. SON AT BEDSIDE. QUESTIONS AND CONCERNS ADDRESSED, SAFETY PRECAUTIONS IN PLACE. ALL DISCHARGE AND TRANSFER INSTRUCTIONS GIVEN TO PATIENT AND SON, BOTH VERBALIZED UNDERSTANDING. TRANSFER COMPLETE.
== END 2018-11-07 16:30 | DRG 438 ==
LOC: ED 21:32 → MU 23:17 → DU 23:17 → MU 11-02 01:13 → DU 11-03 19:36
PROVIDERS: Emergency Medicine; Internal Medicine; ADMIT General Practice
DX: K85.90 Acute pancreatitis without necrosis or infection, unspecified (principal); N17.0 Acute kidney failure with tubular necrosis; E43 Unspecified severe protein-calorie malnutrition; Z68.1 Body mass index [BMI] 19.9 or less, adult; D68.69 Other thrombophilia; E86.0 Dehydration; E87.5 Hyperkalemia; F44.89 Other dissociative and conversion disorders; D50.0 Iron deficiency anemia secondary to blood loss (chronic); E11.65 Type 2 diabetes mellitus with hyperglycemia; E78.5 Hyperlipidemia, unspecified; I10 Essential (primary) hypertension; Z95.0 Presence of cardiac pacemaker; Z95.2 Presence of prosthetic heart valve; Z79.01 Long term (current) use of anticoagulants; Z79.84 Long term (current) use of oral hypoglycemic drugs; Z86.73 Personal history of transient ischemic attack (TIA), and cerebral infarction without residual deficits
CPT/HCPCS: 36600; 82962; 83880; 84439; 92526-GN; 92610; 97110-GP; 97530-GP; G0378; J1815; J1885; J2405; J3411; J3475; J3490; J7030; J7042; Q0092

== ENCOUNTER 2018-11-11 10:43 | Inpatient (IN) | payer OTHER ==
[~2018-11-11] VITALS: Ht 149.9 cm; Wt 42.4 kg
--- NOTE | 2018-11-11 10:44 | NUR ---
PT BIB BLS AMBULANCE S/P ALOC AT [facility] PER PARAMEDICS THEY ARE UNAWARE OF PT NORMAL BASELINE ONLY THAT SHE WAS FOUND IN HER RM "NOT MAKING SENSE WHEN SHE WAS SPEAKING" PER STAFF AT [facility]. PER MEDIC PT AMHARIC SPEAKING ONLY. UPON ARRIVAL PT ALOC, NOT FOLLOWING COMMANDS, UNABLE TO ASSESS ORIENTATION, GARBLED SPEECH, HX CVA, WEAK BILATERAL TAKE OUT WAITER/WAITRESS NOTED, LUNGS CTA, RESPS E/U, SKIN WARM DRY AND INTACT, PT GOWNED AND PLACED ON FULL CM, SINUS PACED. WILL CONTINUE TO MONITOR,
--- NOTE | 2018-11-11 10:44 | NUR ---
PT BIB BLS AMBULANCE S/P ALOC AT [facility] PER PARAMEDICS THEY ARE UNAWARE OF PT NORMAL BASELINE ONLY THAT SHE WAS FOUND IN HER RM "NOT MAKING SENSE WHEN SHE WAS SPEAKING" PER STAFF AT [facility]. PER MEDIC PT ARMENIAN SPEAKING ONLY. UPON ARRIVAL PT ALOC, NOT FOLLOWING COMMANDS HOWEVER WHEN SQUEEZING HER HANDS PT SQUEEZES, WEAK BILATERAL EMERGENCY SERVICES PROFESSIONAL NOTED, NABLE TO ASSESS ORIENTATION, GARBLED SPEECH, HX CVA, LUNGS CTA, RESPS E/U, SKIN WARM DRY AND INTACT, PT GOWNED AND PLACED ON FULL CM, SINUS PACED. WILL CONTINUE TO MONITOR,
--- NOTE | 2018-11-11 11:00 | NUR ---
SON ROJAS CALLED. PER SON PT IS A DNR, I ADVISED THERE IS NO POLST THAT WAS SENT BY KARLENE WITH PT ON FILE. SON WILL TRY TO COME IN BEFORE NOON. DASH HINSON INFORMED.
--- NOTE | 2018-11-11 11:07 | NUR ---
LAB AT BEDSIDE
[2018-11-11 11:33] LABS: CALCIUM 9.9 mg/dL (8.5-10.1); CARBON DIOXIDE 26.9 mmol/L (21-32); CHLORIDE SERUM 104 mmol/L (98-107); CREATININE SERUM 1.2 mg/dL (0.6-1.0); GLUCOSE SERUM 259 mg/dL (74-106); POTASSIUM SERUM 3.5 mmol/L (3.5-5.1); SODIUM SERUM 143 mmol/L (136-145)
[2018-11-11 11:38] LABS: ALKALINE PHOSPHATASE 126 U/L (46-116); ALT/SGPT 39 U/L (14-59); AST/SGOT 18 U/L (15-37); BASOPHIL % 0.3 % (0-2); BILIRUBIN TOTAL 0.3 mg/dL (0.20-1.00); TOTAL PROTEIN, SERUM 7.4 g/dL (6.4-8.2)
--- NOTE | 2018-11-11 11:39 | NUR ---
PORTABLE XRAY AT BEDSIDE
[2018-11-11 11:40] LABS: ALBUMIN 2.1 g/dL (3.4-5.0)
[2018-11-11 11:41] LABS: UA SPECIFIC GRAVITY 1.015 (1.005-1.035); microscopic required? YES; urine erythrocyte 3+ (NEGATIVE)
[2018-11-11 11:51] LABS: PLATELET COUNT 593 x10^3mcL (130-400); RED CELL DISTRIBUTION WIDTH 22.7 % (11.5-14.5)
--- NOTE | 2018-11-11 11:53 | NUR ---
SON AT BEDSIDE
--- NOTE | 2018-11-11 12:24 | NUR ---
PT BIB BLS AMBULANCE S/P ALOC AT [facility] PER PARAMEDICS THEY ARE UNAWARE OF PT NORMAL BASELINE ONLY THAT SHE WAS FOUND IN HER RM "NOT MAKING SENSE WHEN SHE WAS SPEAKING" PER STAFF AT [facility]. PER MEDIC PT MALTESE SPEAKING ONLY. UPON ARRIVAL PT ALOC, NOT FOLLOWING COMMANDS HOWEVER WHEN SQUEEZING HER HANDS PT SQUEEZES, WEAK BILATERAL CAKE FORMER NOTED, UNABLE TO ASSESS ORIENTATION, GARBLED SPEECH, HX CVA, LUNGS CTA, RESPS E/U, SKIN WARM DRY AND INTACT, PT GOWNED AND PLACED ON FULL CM, SINUS PACED. WILL CONTINUE TO MONITOR,
--- NOTE | 2018-11-11 12:35 | NUR ---
SON AT BEDSIDE WITH PT, PT RESPS E/U, WITH INCOMPREHENSIBLE SPEECH, ROCEPHIN [place] INFUSING PER EMAR AND MD ORDER
--- NOTE | 2018-11-11 12:36 | NUR ---
PER SON PT HAD 2 CVAS, IN 2013 AND 2016. PER SON HER "NORMAL" IS AAOX4 HOWEVER RECENTLY NONAMBULATORY D/T ANEMIA "THAT IS WHY SHE WAS RECOVERING AT [facility]" PER SON PT IS "NOT SAYING MUCH RIGHT NOW SHE COMPLAINING ABOUT HEAD PAIN"
--- NOTE | 2018-11-11 12:47 | NUR ---
SON AT BEDSIDE TRYING TO TALK WITH PT WHEN SON ASKS PT IF SHE KNOWS HER NAME SHE STS "BERONICA" WHEN SON ASKS IF SHE KNOWS WHERE SHE IS SHE STS "BERONICA" PT ONLY ORIENTED TO SELF AT THIS TIME
[2018-11-11] MEDS ORDERED: DOK COLACE100 MG PO (12:53)
[2018-11-11] MEDS ORDERED: NITROFURANTOIN100 MG PO ×2 (12:55→14:06)
[2018-11-11 13:09] LABS: MAGNESIUM 2.2 mg/dL (1.8-2.4); PHOSPHOROUS 3.9 mg/dL (2.5-4.9)
--- NOTE | 2018-11-11 13:17 | NUR ---
CALLED REPORT TO XAVIER HORVATH TO ASSUME CARE OF PT IN TELE
--- NOTE | 2018-11-11 13:40 | NUR ---
RECEIVED PT FROM ED VIA [employer], CAME IN FOR DIFFICULTY SWALLOWING AND CONFUSION. ALERT, AWAKE AND CONFUSED. ABLE TO FOLLOW SIMPLE COMMANDS. SPEECH IS SLOW. NO SOB NOTED, LUNG SOUNDS CTA, O2 SAT=97% ON 2LPM/NC. DENIES CHEST PAIN/PRESSURE, SR W/ OCC. PVC'S, PACED ON DEMAND. DENIES ABDOMINAL DISCOMFORT. BOWEL SOUNDS ACTIVE. BLADDER IS SOFT AND NON-DISTENDED, NOTED MILD FOUL ODOR ON THE URINE, W/ URINE INCONTINENCE. W/ ECCHYMOSIS ON LUE. SIDE RAILS UPX2. CALL LIGHT ON REACH. TURNED AND REPOSITIONED ON THE RIGHT SIDE, HEELS ELEVATED W/ PILLOW. SON AT BEDSIDE. PRIMARY NURSE ALEXANDRU AT BEDSIDE FOR CONTINUITY OF CARE
[2018-11-11 13:47] VITALS: BP 181/50
[2018-11-11 14:03] VITALS: Ht 149.9 cm; Wt 42.4 kg
[2018-11-11] MEDS ORDERED: COLACE100 MG PO (14:07)
[2018-11-11] MEDS ORDERED: BACLOFEN10 MG PO (14:07)
[2018-11-11] MEDS ORDERED: GLIPIZIDE5 M3 PO (14:07)
[2018-11-11] MEDS ORDERED: TRAMADOL HCL50 MG PO (14:07)
[2018-11-11] MEDS ORDERED: ZESTRIL20 MG PO (14:08)
[2018-11-11] MEDS ORDERED: FERROUS SULFAT325 M2 PO (14:08)
[2018-11-11] MEDS ORDERED: LIPI20 PO (14:08)
[2018-11-11] MEDS ORDERED: AMLODIPINE BESY10 M2 PO (14:08)
[2018-11-11] MEDS ORDERED: LASIX40 MG PO (14:09)
[2018-11-11 15:55] LABS: AMPHETAMINE QUAL UR NONE DETECTED (See below)
[2018-11-11 17:05] VITALS: BP 141/37
--- NOTE | 2018-11-11 17:45 | NUR ---
PT IN BED SLEEPING, AROUSBALE, RESP E/U ON 2L NC. NO ACUTE DISTRESS NOTED. IV TO R HAND W/ NO SIGNS OF INFILTRATION, IVF INFUSING WELL. BED IN LOWEST POSITION AND CALL LIGHT WITHIN REACH. WILL ENDORSE TO ONCOMING NURSE.
--- NOTE | 2018-11-11 19:27 | NUR ---
RECEIVED PT FROM PREVIOUS SHIFT. PT SLEEPING IN NO ACUTE DISTRESS. EASILY AWAKENED WITH TACTILE STIMULI. FAMILY AT BEDSIDE REQUESTING TO SPEAK WITH DR REGARDING CODE STATUS. DR ORTIZ MADE AWARE. CALL LIGHT WITHIN REACH, BED IN LOW POSITION. WILL CONTINUE TO MONITOR.
[2018-11-11 20:35] VITALS: BP 135/43
--- NOTE | 2018-11-12 01:49 | NUR ---
PT RESTING IN NO ACUTE DISTRESS. RR EVEN AND UNLABORED. IV PATENT. CALL LIGHT WITHIN REACH, BED IN LOW POSITION. WILL CONTINUE TO MONITOR.
[2018-11-12 06:08] VITALS: BP 164/38
[2018-11-12 06:32] LABS: CALCIUM 8.9 mg/dL (8.5-10.1); CARBON DIOXIDE 22.2 mmol/L (21-32); CHLORIDE SERUM 109 mmol/L (98-107); GLUCOSE SERUM 194 mg/dL (74-106); MAGNESIUM 2.1 mg/dL (1.8-2.4); PHOSPHOROUS 3.5 mg/dL (2.5-4.9); POTASSIUM SERUM 3.4 mmol/L (3.5-5.1); SODIUM SERUM 146 mmol/L (136-145)
[2018-11-12 07:22] LABS: BASOPHIL % 0.5 % (0-2)
--- NOTE | 2018-11-12 07:40 | NUR ---
PATIENT ALERT/ORIENT TO SELF, ABLE TO MAKE NEEDS KNOWN AND FOLLOW COMMANDS. DENIES HEADACHE OR CHEST PAIN. TELE 5, READING PACED ON DEMAND W/ SR AND OCC PVC'S. PERIPHERAL PULSES PALPABLE, NO EDEMA. LUNGS CTA, BREATHING E/U, 2L NC IN PLACE. BOWEL SOUNDS ACTIVE, DENIES N/V, DENIES ABD PAIN/TENDERNESS, ABD SOFT. INCONTINENCE NOTED. ECCHYMOSIS NOTED TO LUE, SKIN INTACT. IV ACCESS TO RT HAND SITE WNL. REPORTS FEELING GENERALIZED WEAKNESS AND PAIN WITH GREATER WEAKNESS TO RT ARM AND PAIN TO LT SHOULDER. DENIES HAVING HISTORY OF STROKE OR FALL. CALL LIGHT WITHIN REACH WILL CONT TO MONITOR.
[2018-11-12 07:53] LABS: PLATELET COUNT 491 x10^3mcL (130-400); RED CELL DISTRIBUTION WIDTH 22.9 % (11.5-14.5)
[2018-11-12 08:57] VITALS: BP 167/46
--- NOTE | 2018-11-12 08:58 | NUR ---
DUE AM MEDICATIONS GIVEN, ASPIRATION PREC MAINTAINED. PO MEDS GIVEN CRUSHED PATIENT UNABLE TO TOLERATE SWALLOWING WHOLE PILLS. NORCO GIVEN FOR C/O PAIN TO LT SHOULDER. FAMILY AT BEDSIDE, WILL CONT TO MONITOR.
--- NOTE | 2018-11-12 09:45 | NUR ---
INCONTINENCE/SOILED NOTED. PATIENT CLEANSED AND LINENS CHANGED. PER DAUGHTER, PAIN MEDICAITON EFFECTIVE. WILL CONT TO MONITOR.
[2018-11-12 12:15] VITALS: BP 133/45
[2018-11-12 12:24] LABS: ovalocyte/elliptocyte 1+; rbc morphology (normal/abnorm) ABNORMAL (NORMAL)
[2018-11-12 12:25] VITALS: BP 136/44
[2018-11-12 16:32] VITALS: BP 160/42
--- NOTE | 2018-11-12 19:10 | NUR ---
PATIENT C/O DYSURIA UPON INCONTINENT VOIDING, DR AWARE. CHANGING AND CLEANSING PERIAREA FREQUENTLY. RT HAND SWELLING, GENO BANDAGE COVERING IV SITE REMOVED. IV PATENT, NO REDNESS TO SITE. RT HAND ELEVATED. NORCO GIVEN FOR C/O PAIN TO RT/LT SHOULDERS. NO OTHER SIGNFICANT CHANGE IN CONDITION. WILL CONT TO MONITOR AND ENDORSE TO NOC NURSE.
--- NOTE | 2018-11-12 19:30 | NUR ---
PT RECIEVED FROM DAY NURSE, PT RESTING IN BED COMFORTABLY, NO S/S OF PAIN AT THIS TIME. FAMILY AT BEDSIDE. PT A/O X1 CALM AND COOPERATIVE AT THIS TIME. TELE 5, PACED ON DEMAND SR W/ PVC. PALPABLE PUSLES, NO EDEMA NOTED. BREATHING EVEN AND UNLABORED ON RA. AND SOFT AND ROUND, LLQ TENDERNESS TO PALPATION. ECCYMOSIS NOTED LUE. RH IV CDI. BED AT LOWEST POSITION. CALL LIGHT WITHIN REACH. WILL CONTINUE TO MONITOR.
--- NOTE | 2018-11-12 20:15 | NUR ---
DR ORTIZ NOTIFIED OF ONE TIME LANTUS GIVEN DAY SHIFT. DR ORTIZ STATED TO HOLD 1999 LANTUS.
[2018-11-12 20:51] VITALS: BP 157/41
[2018-11-13] VITALS (8 sets, daily range): BP systolic 127–181; BP diastolic 41–51
--- NOTE | 2018-11-13 00:20 | NUR ---
PT COMPLAINING OF 5/10 SHOULDER PAIN. MEDICATED WITH PRN NORCO. WILL CONTINUE TO MONITOR
--- NOTE | 2018-11-13 05:05 | NUR ---
PT ON PUREE DIET, CANNOT SWOLLOW PILLS. PAGED DR. ORTIZ DUE TO TAB K+ ORDER. CANNOT CRUSH K+ TAB, THEREFORE CANNOT GIVE TO PT IN THIS FORM.
[2018-11-13 06:35] LABS: BASOPHIL % 0.3 % (0-2)
--- NOTE | 2018-11-13 06:36 | NUR ---
PT RESTING IN BED COMFORTABLY. NO S/S OF PAIN AT THIS TIME. BREATHING EVEN AND UNLABORED ON RA. PT BP 177/41 THIS AM, HAVE AM MOSES EARLY. WILL ENDORSE TO DAY NURSE.
[2018-11-13 06:45] LABS: CALCIUM 9.1 mg/dL (8.5-10.1); CARBON DIOXIDE 22.7 mmol/L (21-32); CHLORIDE SERUM 111 mmol/L (98-107); CREATININE SERUM 0.8 mg/dL (0.6-1.0); GLUCOSE SERUM 142 mg/dL (74-106); MAGNESIUM 1.9 mg/dL (1.8-2.4); PHOSPHOROUS 2.7 mg/dL (2.5-4.9); POTASSIUM SERUM 3.3 mmol/L (3.5-5.1); SODIUM SERUM 147 mmol/L (136-145)
[2018-11-13 07:31] LABS: PLATELET COUNT 541 x10^3mcL (130-400); RED CELL DISTRIBUTION WIDTH 22.6 % (11.5-14.5)
--- NOTE | 2018-11-13 07:48 | NUR ---
PATIENT A/OX2, SELF/PLACE. ABLE TO MAKE MOST NEEDS KNOWN AND FOLLOW SIMPLE COMMANDS, GENERALIZED WEAKNESS NOTED, GREATER TO RT ARM AND BLE'S. TELE [address], DENIES CP. LUNGS CTA, NO RESP DISTRESS NOTED ON RA BREATHING E/U. BOWEL SOUNDS ACTIVE, DENIES N/V. PERIPHERAL PULSES PALPABLE, NO EDEMA. ECCHYMOSIS NOTED TO RT HAND AND LUE. REPORTS PAIN UPON URINATION, INCONTINENCE NOTED. IV ACCESS TO LFA SITE WNL, NO REDNESS/SWELLING. CALL LIGHT WITHIN REACH.
--- NOTE | 2018-11-13 08:35 | NUR ---
PATIENT ATE BREAKFAST MEAL >75%, GOOD APPETITE. ASPIRATION PREC MAINTAINED. TOLERATED WELL, DENIES N/V. NO PROBLEMS SWALLOWING OBSERVED WITH PUREE DIET. WILL CONT TO MONITOR. CALL LIGHT WITHIN REACH.
--- NOTE | 2018-11-13 09:00 | NUR ---
PHYSICAL THERAPIST AT BEDSIDE.
[2018-11-13 09:21] LABS: burr cell (echinocyte) 1+; ovalocyte/elliptocyte 1+; rbc morphology (normal/abnorm) ABNORMAL (NORMAL); tear drop cell (dacryocyte) 1+
[2018-11-13] MEDS ORDERED: PYR100 PO (12:20)
[2018-11-13] MEDS ORDERED: LANTI SQ (12:27)
--- NOTE | 2018-11-13 13:43 | NUR ---
PER FAMILY AT BEDSIDE, PATIENT HAS BEEN WALKING TO RESTROOM WITH FAMILY ASSISTANCE TO VOID. TOLERATING FAIRLY.
--- NOTE | 2018-11-13 17:10 | NUR ---
PER AMARA FORBES, MOLDING PROCESS TECHNICIAN TIME FOR PATIENT TO TRANSPORT [facility]ING TO RO[facility], CALL FOR REPORT [phone]. FAMILY AT BEDSIDE MADE AWARE.
--- NOTE | 2018-11-13 20:03 | NUR ---
PT. IN BED, SITTING, WITH FAMILY AT BEDSIDE. AWAITING TRANSPORT BACK TO [facility]. PT. IS ORIENTED X2. ABLE TO FLOOW COMMANDS. BREATH SOUNDS CLEAR THROUGHOUT LUNG [place], RESP. EVEN, UNLABORED. NO SOB AT THIS TIME. PT. ON RA. PT. C/OPAIN IN RT SHOULDER AREA. PRN NORCO GIVEN ORDERED, CRUSHED WITH APPLE SAUCE. IV SITE INTACT. WILL CONTINUE TO MONITOR PT. UNTIL D/C
--- NOTE | 2018-11-13 20:57 | NUR ---
REPORT GIVEN TO XAVIER PARRISH, AT [facility]. ALL CONCERNS ADDRESSED. AWAITING TRANSPORT AT THIS TIME.
--- NOTE | 2018-11-13 23:02 | NUR ---
STILL AWAITING WORD PROCESSOR OPERATOR FROM [facility], FAMILY MADE AWARE THAT THEY HAVE 90 MINUTE WINDOW. [facility] CALLED, SPOKE WITH AYSHA. DISPATCHER STATED THAT THE TRANSPORT IS 20 MINUTES AWAY.
--- NOTE | 2018-11-13 23:42 | NUR ---
[facility] PICKED UP PATIENT. TELE BOX REMOVED, IV CATH REMOVED, 2X2 DRSG IN PLACE. PT. TRANSPORTED WITHOUT INCIDENT. FAMILY FOLLOWING BEHIND.
== END 2018-11-13 23:49 | disposition short-term general hospital (02) | DRG 640 ==
LOC: ED 10:43 → DU 12:33
PROVIDERS: Emergency Medicine; ADMIT Internal Medicine
DX: E86.0 Dehydration (principal); G93.41 Metabolic encephalopathy; N17.0 Acute kidney failure with tubular necrosis; E43 Unspecified severe protein-calorie malnutrition; N39.0 Urinary tract infection, site not specified; Z68.1 Body mass index [BMI] 19.9 or less, adult; D64.9 Anemia, unspecified; I10 Essential (primary) hypertension; E78.5 Hyperlipidemia, unspecified; Z66 Do not resuscitate; Z95.0 Presence of cardiac pacemaker; Z95.2 Presence of prosthetic heart valve; Z79.01 Long term (current) use of anticoagulants; Z86.73 Personal history of transient ischemic attack (TIA), and cerebral infarction without residual deficits
CPT/HCPCS: 82962; C9113; G0378; J0360; J0696; J1815; J3480; J7030; J7060; Q0092

== ENCOUNTER 2018-12-13 05:19 | Inpatient (IN) | payer OTHER ==
[~2018-12-13] VITALS: Ht 157.5 cm; Wt 42.4 kg
[~2018-12-13 05:19] MED LIST changes: +AMLODIPINE BESY10 M2 PO; +BACLOFEN10 MG PO; +COLACE100 MG PO; +DOK COLACE100 MG PO; +FERROUS SULFAT325 M2 PO; +GLIPIZIDE5 M3 PO; +LANTI SQ; +NITROFURANTOIN100 MG PO; +PYR100 PO; +TRAMADOL HCL50 MG PO
[2018-12-13 05:22] VITALS: Ht 157.5 cm; Wt 42.4 kg
--- NOTE | 2018-12-13 05:34 | NUR ---
PATIENT SEEN WITH COMPLAINT OF VOMITING AND ABDOMINAL PAIN. [employer] AT THE BEDSIDE DRAWING BLOOD. EKG WAS DONE.
[2018-12-13 05:43] LABS: BASOPHIL % 0.2 % (0-2)
[2018-12-13 05:45] LABS: PLATELET COUNT 497 x10^3mcL (130-400)
--- NOTE | 2018-12-13 05:50 | NUR ---
PATIENT MEDICATED WITH PO ZOFRAN.
[2018-12-13 06:00] LABS: acanthocyte (spur cell) 1+; rbc morphology (normal/abnorm) ABNORMAL (NORMAL)
[2018-12-13 06:12] LABS: CALCIUM 9.4 mg/dL (8.5-10.1); CARBON DIOXIDE 24.3 mmol/L (21-32); CHLORIDE SERUM 103 mmol/L (98-107); CREATININE SERUM 1.2 mg/dL (0.6-1.0); GLUCOSE SERUM 241 mg/dL (74-106); POTASSIUM SERUM 4.2 mmol/L (3.5-5.1); SODIUM SERUM 138 mmol/L (136-145)
[2018-12-13 06:17] LABS: ALKALINE PHOSPHATASE 99 U/L (46-116); ALT/SGPT 13 U/L (14-59); AST/SGOT 15 U/L (15-37); BILIRUBIN TOTAL 0.3 mg/dL (0.20-1.00); TOTAL PROTEIN, SERUM 7.3 g/dL (6.4-8.2)
[2018-12-13 06:23] LABS: ALBUMIN 2.6 g/dL (3.4-5.0)
--- NOTE | 2018-12-13 06:39 | NUR ---
PATIENT WAS SEEN BY .
--- NOTE | 2018-12-13 06:56 | NUR ---
PATIENT WAS SEEN BY . LAB IS AT THE BEDSIDE DRAWING BLOOD.
--- NOTE | 2018-12-13 07:29 | NUR ---
PT GIVEN BED MORAN PER REQUEST.
--- NOTE | 2018-12-13 08:45 | NUR ---
URINE OBTAINED VIA STRAIGHT CATH PER REQUEST. PT TOLERATED PT PROCEDURE WELL.
[2018-12-13 09:06] LABS: microscopic required? YES; urine erythrocyte 1+ (NEGATIVE)
--- NOTE | 2018-12-13 09:50 | NUR ---
PT LAYING ON GURNEY IN POSITION OF COMFORT, AAOX4, RESP E/U, NO ACUTE DISTRESS NOTED AT THIS TIME.
[2018-12-13] MEDS ORDERED: LIPI20 PO (11:05)
[2018-12-13] MEDS ORDERED: BACLOFEN5 MG PO (11:05)
[2018-12-13] MEDS ORDERED: ZESTRIL20 MG PO (11:05)
[2018-12-13] MEDS ORDERED: TRAMADOL HCL50 MG PO (11:06)
[2018-12-13] MEDS ORDERED: FERROUS SULFAT325 M2 PO (11:07)
[2018-12-13] MEDS ORDERED: FUROSEMIDE40 MG PO (11:07)
[2018-12-13] MEDS ORDERED: GLIPIZIDE5 M2 PO (11:07)
[2018-12-13] MEDS ORDERED: AMLODIPINE BESY10 M2 PO (11:08)
--- NOTE | 2018-12-13 11:34 | NUR ---
REPORT GIVEN TO XAVIER CAMACHO ON MED/SURG UNIT TO ASSUME CARE OF PT.
--- NOTE | 2018-12-13 11:34 | NUR ---
RECEIVED REPORT FROM [facility] IN ER.
--- NOTE | 2018-12-13 12:01 | NUR ---
RECEIVED PT FROM ER VIA [facility] WITH NURSE. ARAM XIE AT BEDSIDE. PT A/OX4. SPEECH CLEAR AND APPROPRIATE. PT STATES SHE HAD N/V X 5 LAST NIGHT. PT DENIES ANY N/V AT THIS TIME. PT STATES "I HAVE NOT VOIDED SINCE SATURDAY. I FEEL LIKE I HAVE TO GO BUT CANT" DR. DILLON AT BEDSIDE MADE AWARE. NO ACUTE RESP DISTRESS NOTED ON RA. DENIES SOB. IV TO RW FLUSHED WELL. NO REDNESS OR SWELLING NOTED. SKIN W/D/I. AIR MATTRESS IN PLACE. MRSA OF NARES DONE. WILL CONTINUE TO MONITOR. CALL LIGHT IN REACH. BED IN LOWEST POSITION.
--- NOTE | 2018-12-13 12:15 | NUR ---
DR. DILLON AT BEDSIDE SPEAKING WITH PT AND FAMILY. DR. DILLON MADE AWARE PT HAS NOT BEEN ABLE TO VOID ON OWN SINCE MONDAY 12/11 AND PT WAS STRAIGHT CATH IN ED. PER DR. DILLON WILL PUT IN ORDER FOR MARIA CATHETER.
[2018-12-13 13:58] VITALS: BP 159/39
--- NOTE | 2018-12-13 15:32 | NUR ---
PT SITTING UP IN BED. NO ACUTE RESP DISTRESS NOTED ON RA. DENIES SOB. PT DENIES ANY PAIN AT THIS TIME. ASKED PT IF SHE NEEDED TO USE BATHROOM. PT STATES YES. PT USED BEDPAN, PT VOIDED 300 ML OF CLEAR YELLOW URINE. SPOKE WITH DR. DILLON PER DR. DILLON HOLD OFF ON PUTTING IN MARIA AND CONTINUE TO MONITOR PT.
--- NOTE | 2018-12-13 16:05 | NUR ---
RECEIVED PT AND REPORT FROM XAVIER CAMACHO. PT IS IS RESTING, AAOX4, FORGETFUL AT TIMES. PALPATED BLADDER, NO DISTENTION NOTED. PT DENIES PAIN AT THIS TIME. CALL LIGHT WITHIN REACH.
--- NOTE | 2018-12-13 16:09 | NUR ---
ENDORSED CARE TO JONATHAN PARK. BEDSIDE REPORT GIVEN. ALL QUESTIONS AND CONCERNS ADDRESSED.
[2018-12-13 16:18] VITALS: BP 159/43
--- NOTE | 2018-12-13 17:15 | NUR ---
BLOOD SUGAR 226, 6 UNITS REGULAR INSULIN GIVEN. PT DENIES PAIN AT THIS TIME. RESP EVEN AND UNLABORED. NO DISTRESS NOTED. CALL LIGHT WITHIN REACH.
--- NOTE | 2018-12-13 18:10 | NUR ---
REPORTED TO DR. CANTRELL THAT PT'S B/P = 159/43, HR 73. DR. CANTRELL SAID NO MEDICATION NEEDED AT THIS TIME. WILL GIVE PARAMETERS TO EXISTING MEDICATION. PT MADE AWARE.
--- NOTE | 2018-12-13 18:54 | NUR ---
PT IS AAOX4 WITH PERIODS OF FORGETFULNESS. RESP EVEN AND UNLABORED. IVF RUNNING TO RW, WITH WNL. NO DISTRESS NOTED. DENIES PAIN. CALL LIGHT WITHIN REACH. BED IN LOWEST POSITION. WILL ENDORSE ALL CARE TO NOC RN.
--- NOTE | 2018-12-13 19:41 | NUR ---
AWAKE AND ALERT, ORIENTED TO NAME, PLACE, TIME AND SITUATION. FORGETFUL AT TIMES. GENERALIZED WEAKNESS. HOB ELEVATED 30 DEG. BREATHING EVEN AND UNLABORED ON ROOM AIR. ON AIR MATTRESS. IVF INFUSING WELL. IV SITE FREE FROM ERYTHEMA OR SWELLING. CALL LIGHT WITHIN EASY REACH. HOB ELEVATED 30 DEG. BED ALARM ON.
[2018-12-13 20:28] VITALS: BP 159/47
--- NOTE | 2018-12-13 20:40 | NUR ---
DUE MEDICATIONS ADMINISTERED. ABLE TO SWALLOW PO MEDICATIONS WITHOUT DIFFICULTY. BED ALARM ON.
--- NOTE | 2018-12-13 21:46 | NUR ---
EYES CLOSED, HOB ELEVATED 30 DEG. BREATHING EVEN AND UNLABORED. BED ALARM ON. CALL LIGHT WITHIN EASY REACH.
--- NOTE | 2018-12-14 02:12 | NUR ---
EYES CLOSED, BREATHING EVEN AND UNLABORED ON ROOM AIR. HOB ELEVATED 30 DEG, CALL LIGHT WITHIN EASY REACH, BED ALARM ON.
--- NOTE | 2018-12-14 03:03 | NUR ---
PT ACCIDENTALLY PULLED IV OUT. INTACT. NEW IV INSERTED TO RIGHT FOREARM, 22G. TOLERATED WELL. GOWN AND LINENS CHANGED, ASSISTED BY TREY ANTONIETTA
[2018-12-14 06:12] LABS: BASOPHIL % 0.1 % (0-2)
[2018-12-14 06:31] VITALS: BP 154/44
[2018-12-14 06:39] LABS: PLATELET COUNT 454 x10^3mcL (130-400)
[2018-12-14 06:40] LABS: rbc morphology (normal/abnorm) ABNORMAL (NORMAL)
[2018-12-14 06:48] LABS: CALCIUM 9.2 mg/dL (8.5-10.1); CARBON DIOXIDE 24.4 mmol/L (21-32); CHLORIDE SERUM 107 mmol/L (98-107); CREATININE SERUM 0.8 mg/dL (0.6-1.0); GLUCOSE SERUM 223 mg/dL (74-106); MAGNESIUM 1.8 mg/dL (1.8-2.4); PHOSPHOROUS 3.2 mg/dL (2.5-4.9); POTASSIUM SERUM 4.7 mmol/L (3.5-5.1); SODIUM SERUM 141 mmol/L (136-145)
--- NOTE | 2018-12-14 07:07 | NUR ---
AWAKE AND ALERT, BREATHING EVEN AND UNLABORED. STATED FEELING BETTER AFTER RECEIVING TYLENOL FOR FOOT PAIN. IVF INFUSING WELL, IV SITE TO RIGHT FOREARM FREE FROM ERYTHEMA OR SWELLING. ENDORSED TO NURSE DOUG
--- NOTE | 2018-12-14 07:20 | NUR ---
RECEIVED PT FROM PROVIDER NETWORK ANALYST RN. Arianne/[place]. MED SURG. DENIES CHEST PAIN/PRESSURE. RESPIRATIONS EQUAL AND UNLABORED ON RA. DENIES SOB. PT OFTEN FORGETFUL AT TIMES. SCDS IN PLACE AT BEDSIDE. PT STATES SHE HAS PAIN TO THE BOTTOM OF HER RIGHT FOOT LAST NIGHT THAT IMPROVED WITH TYLENOL. AIR MATTRESS IN PLACE. IV TO RFA PATENT AND INFUSING. NO REDNESS OR SWELLING NOTED. ASSISTED PT WITH BED MORAN. NOTED 200 ML OF CLEAR YELLOW URINE. WILL CONTINUE TO MONITOR. CALL LIGHT IN REACH. BED IN LOWEST POSITION.
[2018-12-14 07:42] VITALS: BP 136/33
--- NOTE | 2018-12-14 09:06 | NUR ---
PT SITTING UP IN BED RESTING. NO ACUTE RESP DISTRESS NOTED ON RA. PT C/O NECK PAIN. PT REPOSITIONED. GIVEN PO MEDS. TOLERATED WELL. BLOOD PRESSURE WAS 135/33. NOTED PARAMETERS FOR NORVASC TO HOLD IF DBP<60. HELD NORVASC. PAGED DR. DILLON TO MAKE AWARE. IV ANTIBIOTIC INFUSING ORDERED TO RFA. NO REDNESS OR SWELLING NOTED. WILL CONTINUE TO MONITOR. CALL LIGHT IN REACH. BED IN LOWEST POSITION.
--- NOTE | 2018-12-14 09:18 | NUR ---
SPOKE WITH DR. DILLON REGARDING PT BLOOD PRESSURE. PER DR. WILMA WYATT TO HOLD NORVASC FOR NOW BUT CONTINUE TO MONITOR BP DUE TO SBP TENDING TO TREND HIGH.
--- NOTE | 2018-12-14 10:38 | NUR ---
PT SITTING UP IN BED. PT C/O ABDOMINAL TENDERNESS TO ALL 4 QUADRANTS. PT STATES "I HAVE NOT BEEN ABLE TO POOP FOR 5 DAYS. LAST TIME I POOPED IT HURT A LOT AND WAS VERY SMALL" PT DENIES ANY NAUSEA AT THIS TIME. DR. DILLON AT BEDSIDE ASSESSING PT. PT WAS GIVEN COLACE AT [address] DILLON WILL ORDER A KUB TO BE SAFE BUT WILL ONLY CONTINUE COLACE BID AT THIS TIME DUE TO PUTTING PT AT RISK FOR DIARRHEA. COMMUNICATED TO PT, PT VERBALIZED UNDERSTANDING. WILL CONTINUE TO MONITOR. CALL LIGHT IN REACH. BED IN LOWEST POSITION.
--- NOTE | 2018-12-14 11:42 | NUR ---
PT SITTING UP IN BED SLEEPING. NO ACUTE RESP DISTRESS NOTED ON RA. PT STATES PAIN TO ABDOMEN IS INCREASING 11/15. PT ASKING FOR PAIN MEDS. EXPLAINED TO PT MEDICATION CAN MAKE PT CONSTIPATED. PT ASKING TO WAIT FOR NOW. BLOOD SUGAR CHECKED WAS 267. PT REFUSED REGULAR INSULIN. PT STATES "I HAVEN'T BEEN EATING A LOT. I DON'T FEEL HUNGRY RIGHT NOW. I DONT WANT TO EAT LUNCH" KUB NOT DONE YET. WILL CONTINUE TO MONITOR. CALL LIGHT IN REACH. BED IN LOWEST POSITION.
--- NOTE | 2018-12-14 12:15 | NUR ---
SON ROJAS TORRES AT BEDSIDE. SON UPDATED ON POC. ALL QUESTIONS AND CONCERNS ADDRESSED.
--- NOTE | 2018-12-14 12:29 | NUR ---
PT SITTING UP IN BED. PT OKAY WITH EATING LUNCH. PT SON STATES PT MISUNDERSTOOD AND THOUGHT SHE COULDN'T EAT. PT ASKED IF SHE WANTED TO TAKE THE REGULAR INSULIN TO PREVENT SUGARS FROM INCREASING. PT AGREED. PT GIVEN 9 UNITS OF REGULAR INSULIN PER SLIDING SCALE. WILL CONTINUE TO MONITOR. CALL LIGHT IN REACH. BED IN LOWEST POSITION.
[2018-12-14 13:09] VITALS: BP 142/36
--- NOTE | 2018-12-14 13:31 | NUR ---
PT SITTING UP IN BED. SON AT BEDSIDE. PT STATES SHE FEELS LIKE SHE HAS THE CHILL. ORAL TEMPERATURE CHECKED WAS 97.7. PT STATES ABDOMINAL PAIN HAS IMPROVED BUT IS STILL THERE. WILL CONTINUE TO MONITOR. CALL LIGHT IN REACH. BED IN LOWEST POSITION.
--- NOTE | 2018-12-14 16:39 | NUR ---
PT SITTING UP IN BED RESTING. NO ACUTE RESP DISTRESS NOTED ON RA. PT STATES PAIN TO ABDOMEN IS TOLERABLE AT THIS TIME. PT DENIES ANY N/V AT THIS TIME. IV PATENT AND INFUSING TO RFA. NO REDNESS OR SWELLING NOTED. ASSISTED PT TO REPOSITION SUPINE WITH HOB ELEVATED. PT STATES SHE DOES NOT HAVE TO PEE NOW BUT WILL CALL WHEN SHES READY. BLOOD SUGAR CHECKED WAS 127. NO COVERAGE NEEDED. WILL CONTINUE TO MONITOR. CALL LIGHT IN REACH. BED IN LOWET POSITION.
[2018-12-14 16:49] VITALS: BP 135/40
--- NOTE | 2018-12-14 18:28 | NUR ---
PT SITTING UP IN BED. NO ACUTE RESP DISTRESS NOTED ON RA. PT DENIES ANY ABDOMINAL PAIN AT THIS TIME. PT C/O PAIN TO IV SITE. IV FLUSHED WELL. NO REDNESS OR SWELLING NOTED. NO SIGNS OF INFILTRATION NOTED. PT DENIES ANY SOB. WILL ENDORSE TO ABSENCE MANAGEMENT CONSULTANT RN. CALL LIGHT IN REACH. BED IN LOWEST POSITION.
--- NOTE | 2018-12-14 19:25 | NUR ---
PT RECEIVED FROM AM NURSE. PT A/O X4, WITH EPISODES OF FORGETFULNESS, ABLE TO MAKE NEEDS KNOWN, ROMANIAN SPEAKING. MED-SURG, DENIES ANY CP/PRESSURE. PULSES PALPABLE, NO EDEMA PRESENT. BREATHING IS EVEN AND UNLABORED, NO RESP DISTRESS NOTED. ABD SOFT AND NONDISTENDED, DENIES N/V. VOIDS FREELY USING BEDPAIN, PT MAY HAVE EPISODES OF URINARY INCONTINENCE. GENERALIZED WEAKNESS, PENDING PT EVAL. SKIN IS WARM AND DRY, INTACT. PT DENIES HAVING ANY PAIN AT THIS TIME. IV TO RFA, PATENT AND INTACT, SITE WNL. NO ACUTE DISTRESS NOTED. BED IN LOWEST SETTING, SIDE RAILS UP X2, BED ALARM ON, CALL LIGHT WITHIN REACH. WILL CONT TO MONITOR.
[2018-12-14 21:17] VITALS: BP 146/45
[2018-12-15 05:01] VITALS: BP 152/44
--- NOTE | 2018-12-15 06:21 | NUR ---
PT SLEPT WELL THROUGHOUT THE EVENING. BREATHING IS EVEN AND UNLABORED, NO RESP DISTRESS NOTED. PT DENIES HAVING ANY PAIN AT THIS TIME. IVF INFUSING WELL TO RW, SITE FREE FROM REDNESS OR SWELLING. NO ACUTE CHANGES ENCOUNTERED DURING SHIFT. ALL NEEDS MET AND ANTICIPATED. PT COMPLIANT WITH NURSING CARE. BED ALARM ON. CALL LIGHT WITHIN REACH. WILL CONT TO MONITOR.
[2018-12-15 07:19] LABS: BASOPHIL % 0.3 % (0-2)
--- NOTE | 2018-12-15 07:20 | NUR ---
RECEIVED PATIENT AWAKE/ALERT IN BED, DENIES PAIN AT THIS TIME. IV TO RW INTACT AND INFUSING WELL. POC EXPLAINED. CALL LIGHT WITHIN REACH.
[2018-12-15 07:30] LABS: CALCIUM 8.5 mg/dL (8.5-10.1); CARBON DIOXIDE 22.8 mmol/L (21-32); CHLORIDE SERUM 111 mmol/L (98-107); CREATININE SERUM 0.8 mg/dL (0.6-1.0); GLUCOSE SERUM 190 mg/dL (74-106); MAGNESIUM 1.8 mg/dL (1.8-2.4); PHOSPHOROUS 3.7 mg/dL (2.5-4.9); POTASSIUM SERUM 4.3 mmol/L (3.5-5.1); SODIUM SERUM 144 mmol/L (136-145)
--- NOTE | 2018-12-15 07:33 | NUR ---
PT IN NO ACUTE DISTRESS. CONTINUITY OF CARE ENDORSED TO AM NURSE. ALL QUESTIONS AND CONCERNS ADDRESSED.
[2018-12-15 08:01] LABS: RED CELL DISTRIBUTION WIDTH 22.9 % (11.5-14.5)
[2018-12-15 08:02] LABS: PLATELET COUNT 408 x10^3mcL (130-400)
--- NOTE | 2018-12-15 08:30 | NUR ---
REPORT H/H 6.5 AND 20 TO BRUCE OUTER DIAMETER TECHNICIAN PER OUTER DIAMETER TECHNICIAN WILL ORDER REDRAW.
[2018-12-15 08:37] LABS: rbc morphology (normal/abnorm) ABNORMAL (NORMAL)
[2018-12-15 09:05] VITALS: BP 138/34
[2018-12-15 10:02] LABS: PLATELET COUNT 442 x10^3mcL (130-400); RED CELL DISTRIBUTION WIDTH 22.6 % (11.5-14.5)
[2018-12-15 10:56] LABS: MONOCYTE 2 % (0-7); SEGMENTED NEUTROPHILS 92 % (37-75)
[2018-12-15 10:57] LABS: PLATELET MORPHOLOGY PLATELETS INCREASED; rbc morphology (normal/abnorm) ABNORMAL (NORMAL)
--- NOTE | 2018-12-15 11:01 | NUR ---
DENZEL CALL FOR HGB 6.7 AND COMPUTER ASSISTANT WAS MADE AWARE. WILL TRANSFUSE BLOOD.
--- NOTE | 2018-12-15 11:30 | NUR ---
PATIENT AWAKE/ALERT IN BED RN AND WELDER SETTER RESISTANCE MACHINE SANDRA ASSIST WITH TRANSLATE FOR BLOOD CONSENT AND TOMB MAKER HELPER BRUCE SPOKE WITH PATIENT REGARD BLOOD TRANSFUSION DUE TO LOW HGB 6.7 AND PATIENT AGREE.
--- NOTE | 2018-12-15 12:01 | NUR ---
DR. ESCOBAR SEEN PATIENT AND EXAM, PER DR. ESCOBAR WILL PERFORM EGD TOMORROW AND ALSO SUGGEST CALORIES COUNT AND CONSIDER PEG PLACE. TALCER SEEN AND TALK TO PATIENT AND DISCUSS MEAL PLAN. WILL PLACE PATIENT ON SUPPLEMENT.
--- NOTE | 2018-12-15 12:16 | NUR ---
1. Recommend continuing [facility] diet. 2. Recommend Glucerna BID. This will provide additional 440 kcal and 20g protein.
--- NOTE | 2018-12-15 12:16 | NUR ---
Initial Nutrition Assessment: 219/B LUANNE TORRES HR Dx: UTI, dehydration PMHx: H/O anemia EGD+Colonoscopy were performed which showed Hemorrhagic gastritis with one erosion. Hypertension, Diabetes Mellitus, Cerebrovascular Accident: 2 TIAs, Hypercholesterolemia, Arthritis, AV block, S/P Pacemaker insertion, Aortic Valve Replacement Cholecystitis, S/P Cholecystectomy-4 years ago PSHx: Cholecystectomy (2014), Pacemaker placement 2016 Labs: BG 190H, HGB 6.5L Meds: Colace, D 50%, ferrous sulfate, humulin, Lipitor, norco, zofran Diet: CCHO (no egg, fish) PO Intake: (12/14) 50% Ht: 157.48 cm (62") Wt: 42 kg (92#) BMI: 17.1 kg/m2 Bed scale: 44.5 kg IBW: 110# (50 kg) %IBW: 84 UBW: unable to access Age: 78/F Food Allergies: NKFA Skin: intact Chase: 16 Edema: none GI: Last BM: 12/12 Per H&P, Pt is a 78 yo F with history of DM, HTN, 2 TIAs, AV block s/p pacemaker insertion, s/p aortic valve replacement, Cholecystitis s/p cholecystectomy(2014), arthritis, was brought in by her son because she has been having nausea and vomiting since family manager. RDN Visit (12/15): Patient was Estonian speaking, ROENTGENOLOGIST helped in translation. Per RN Nancy, patient seems to have lost muscle mass since last admission. Patient is constipated and her last BM was on 12/12/18. FNS received consult for 'malnutrition' on 12/14. Per RN, Dr. John saw the patient and has told the patient that if poor PO continues than he may have to consider placing NG tube. Patient told me that she does not want the feeding tube. I encouraged her to eat and will be recommending oral nutrition supplements. Problem with: N/V/D/C: constipation Problems with: Chewing/Swallowing: none Current appetite: good in the morning, otherwise poor Recent wt change: none, but malnourished %wt change: n/a Vitamin/Supplement use: consumes some vitamins brought form [place] but does not know their names, informed PRICING COORDINATOR Shanell Special diet at home: regular Physical activity: none Nutrition education given: PO was encouraged Food-drug interactions: Colace- high fiber w/8503-1793 ml fluids Education given: yes Estimated Nutritional Needs Based on current body weight 44.5 kg Energy: 3796-7592 kcal/d (35-40 kcal/kg) Protein: 53-62 g/d (1.2-1.4 g/kg) - preserve LBM Fluid: 0462-5750 ml/d (1 ml/kcal) or per doctor Nutrition Diagnosis 1. Malnutrition related to poor PO, advanced age as evidenced BMI 17.7 kg/m2. Intervention 1. Recommend continuing CCHO diet. 2. Recommend Glucerna BID. This will provide additional 440 kcal and 20g protein. Monitor/Evaluate Goal: PO intake at least 75% of estimated needs Monitor: PO intake, Labs, GI function F/U in 2-3 days as high risk 12/17-
--- NOTE | 2018-12-15 12:40 | NUR ---
REPOSITION PATIENT UP FOR LUNCH. SETUP TRAY FOR PATIENT. GAVE REGULAR INSULIN 12 UNITS SQ FOR BS 324. CONT TO MONITOR.
[2018-12-15 12:49] LABS: FREE T4 1.2 ng/dL (0.76-1.46)
--- NOTE | 2018-12-15 14:52 | NUR ---
PATIENT AWAKE/ALERT IN BED WATCHING TV, NO DISTRESS NOTED. PRE-MEDICATED WITH BENADRYL AND TYLENOL PO PRIOR BLOOD TRANSFUSION ORDERED. PATIENT TOLERATED WELL, NO REACTION NOTED.
--- NOTE | 2018-12-15 15:17 | NUR ---
PATIENT RESTING IN BED NO DISTRESS NOTED, STATES HER NAME, DATE OF . VERTIFIED BY 2 RN. INITIAL VITALS: 99.4, BP 147/44, HR 71 AND RR 16. I UNITS PRBC STARTED. CONT TO MONITOR FOR 15 MIN. INCONT OF URINE, BARBRA CARE PROVIDED. REPOSITION FOR COMFORT. CALL LIGHT WITHIN REACH.
--- NOTE | 2018-12-15 15:40 | NUR ---
PATIENT SLEEPING NO DISTRESS NOTED, AFTER 15 MIN BLOOD TRANSFUSION, VITAL SIGN STABLE. T 99.5 NO REACTION NOTED. CONT TO MONITOR.
--- NOTE | 2018-12-15 16:34 | NUR ---
PATIENT BLOOD SUGAR 183, RECEIVED 3 UNITS OF HUMULIN R PER SLIDING SCALE INSULIN COVERAGE. BLOOD STILL INFUSING. NO S/SX OF ALLERGIC REACTION. WILL CONTINUE TO MONITOR. BED ALARM ACTIVATED. CALL LIGHT WITHIN REACH.
--- NOTE | 2018-12-15 17:46 | NUR ---
PER FNS WAITING FOR RICCARDO IN AM TO DO CALORIES COUNT.
[2018-12-15 17:51] VITALS: BP 141/51
--- NOTE | 2018-12-15 18:21 | NUR ---
PATIENT FINISHED BLOOD TRANSFUSION 1 UNIT PRBCS. NO SIGNS OF ALLERGIC REACTION NOTED. VITAL SIGNS STABLE. TEMPERATURE 99.6 F NOTED. WILL CONTINUE TO MONITOR. CALL LIGHT WITHIN REACH.
--- NOTE | 2018-12-15 19:30 | NUR ---
RECEIVED PT IN BED AWAKE, ALERT,ORIENTED TO PERSON, PLACE AND TIME. PT'S SON AT BEDSIDE. LUNG SOUNDS CLEAR. NO SOB ON ROOM AIR. BOWEL SOUNDS ACTIVE. PT HAS NO C/O ABDL PAIN. SHE STATED SHE HAS BURNING SENSATION ON URINATION. W/ IVF NS AT 70 CC/HR VIA RT WRIST. CALL LIGHT W/IN REACH.
[2018-12-15 21:27] VITALS: BP 150/45
--- NOTE | 2018-12-16 | NUR ---
PT APPEARS TO BE SLEEPING COMFORTABLY. NO S/S OF DISTRESS.
[2018-12-16 05:31] VITALS: BP 154/46
--- NOTE | 2018-12-16 06:53 | NUR ---
PT SLEPT AT LONG INTERVALS. PT WAS CALM THROUGHOUT THE NIGHT. NO RESP. DISTRESS NOTED. SHE HAD NO BM THIS SHIFT. IVF NS INFUSING WELL VIA RT WIRST. ALL NEEDS ATTENDED TO.
--- NOTE | 2018-12-16 07:25 | NUR ---
RECIEVED PT RESTING IN BED WITH NO C/O PAIN OR DISTRESS. A/O X3 WITH NO HAYES OR DIZZINESS. NS RUNNING IN RIGHT WRIST AT 20ML/HR, NO REDNESS OR INFLAMMATION AND INTACT/PATENT. SAFETY PRECAUTIONS IN PLACE, CALL LIGHT WITHIN REACH, WILL MONITOR.
[2018-12-16 07:26] LABS: CALCIUM 8.4 mg/dL (8.5-10.1); CARBON DIOXIDE 21.9 mmol/L (21-32); CHLORIDE SERUM 111 mmol/L (98-107); CREATININE SERUM 0.8 mg/dL (0.6-1.0); GLUCOSE SERUM 165 mg/dL (74-106); POTASSIUM SERUM 3.7 mmol/L (3.5-5.1); SODIUM SERUM 145 mmol/L (136-145)
[2018-12-16 07:30] LABS: BASOPHIL % 0.3 % (0-2)
[2018-12-16 07:35] LABS: PLATELET COUNT 404 x10^3mcL (130-400); RED CELL DISTRIBUTION WIDTH 20.9 % (11.5-14.5)
[2018-12-16 08:36] LABS: ovalocyte/elliptocyte 1+
[2018-12-16 08:37] LABS: rbc morphology (normal/abnorm) ABNORMAL (NORMAL)
--- NOTE | 2018-12-16 10:30 | NUR ---
PT STABLE, RESTING IN BED WITH NO C/O DISTRESS OR PAIN. TOLERATING CARES WELL. SAFETY PRECAUTIONS IN PLACE, CALL LIGHT WITHIN REACH, WILL MONITOR.
--- NOTE | 2018-12-16 14:55 | NUR ---
PHYSICAL THERAPY DAILY NOTES CO-SIGN All documentation done by the Director Of Solutions Architecture for 12/16/18 has been reviewed. I agree with the documentation. Reviewed/Co-Signed by: Kianna Dykes PT Documentation Done by: ALBIN GRAHAM PTA
--- NOTE | 2018-12-16 15:35 | NUR ---
PT STABLE WITH NO C/O DISTRESS OR PAIN. TOLERATING CARES WELL. SAFETY PRECAUTIONS IN PLACE, CALL LIGHT WITHIN REACH, WILL MONITOR.
[2018-12-16 17:31] VITALS: BP 152/47
--- NOTE | 2018-12-16 17:44 | NUR ---
PT STABLE RESTING IN BED WITH NO C/O PAIN OR DISTRESS. A/O X3 WITH NO HAYES OR DIZZINESS. VS WNL, TOLERATED ALL CARES WELL. IV INTACT AND PATENT TO RIGHT WRIST. NO REDNESS OR INFLAMMATION NOTED. SAFETY PRECAUTIONS IN PLACE, CALL LIGHT WITHIN REACH, WILL ENDORSE CARE TO NIGHT NURSE.
--- NOTE | 2018-12-16 18:30 | NUR ---
ALL CALORIE COUNT SHEETS GIVEN TO KITCHEN.
--- NOTE | 2018-12-16 18:47 | NUR ---
PT HAD LARGE BM.
--- NOTE | 2018-12-16 19:40 | NUR ---
RECEIVED PATIENT IN BED AWAKE AND ALERT WITH NO SIGN OF DISTRESS. YORUBA SPEAKING ONLY. NO INDICATION OF PAIN AND NAUSEA NOTED AT THIS TIME. ABDOMEN SOFT AND NONTENDER WITH ACTIVE BS. IV TO RW FINA, FLUSHED WITH NS. WILL CONTINUE TO MONITOR. CALL LIGHT WITHIN REACH.
[2018-12-16 21:08] VITALS: BP 150/49
--- NOTE | 2018-12-16 23:07 | NUR ---
C/O HEADACHE TYLENOL 650MG PO GIVEN PRESCRIBED. WILL CONTINUE TO MONITOR.
--- NOTE | 2018-12-17 00:08 | NUR ---
APPEAR TO BE SLEEPING THIS TIME AFTER PAIN MEDS WAS GIVEN. WILL CONTINUE TO MONITOR.
--- NOTE | 2018-12-17 05:14 | NUR ---
SLEPT AT LONG INTERVALS C/O HEADACHE X1 THE ENTIRE SHIFT AND MEDICATED PRESCRIBED. ALL NEEDS ATTENDED.
--- NOTE | 2018-12-17 06:04 | NUR ---
BP-173/57 NORVASC 5MG PO GIVEN PRESCRIBED. WILL ENDORSE CONTINOUS MONITORING TO AM SHIFT.
[2018-12-17 06:09] LABS: BASOPHIL % 0.3 % (0-2)
[2018-12-17 06:17] LABS: CALCIUM 9.1 mg/dL (8.5-10.1); CHLORIDE SERUM 111 mmol/L (98-107); CREATININE SERUM 0.8 mg/dL (0.6-1.0); GLUCOSE SERUM 232 mg/dL (74-106); POTASSIUM SERUM 4.2 mmol/L (3.5-5.1); SODIUM SERUM 145 mmol/L (136-145)
[2018-12-17 06:38] VITALS: BP 175/57
--- NOTE | 2018-12-17 07:06 | NUR ---
RECEIVED PT FROM FIELD CLERK NURSE. PT RESTING IN BED, AOX4, RESP E/U ON RA. NO SIGNS OF ACUTE DISTRESS NOTED AT THIS TIME. SALINE LOCKED TO R WRIST W/ NO ERYTHEMA OR EDEMA. BED IN LOWEST POSITION, AIR MATTRESS IN PLACE, CALL LIGHT WITHIN REACH. WILL CONTINUE TO MONITOR.
[2018-12-17 07:41] LABS: PLATELET COUNT 496 x10^3mcL (130-400)
[2018-12-17 10:00] VITALS: BP 165/48
[2018-12-17] MEDS ORDERED: ROC1I IV (10:43)
[2018-12-17 13:22] VITALS: BP 165/48
--- NOTE | 2018-12-17 15:06 | NUR ---
PHYSICAL THERAPY DAILY NOTES CO-SIGN All documentation done by the Fabric Coating Supervisor for 12/17/18 has been reviewed. I agree with the documentation. Reviewed/Co-Signed by: Kianna Dykes PT Documentation Done by: ALBIN GRAHAM PTA
--- NOTE | 2018-12-17 15:18 | NUR ---
CARRIED OUT PT TRANSFER TO [facility]. REVIEWED VISIT SUMMARY AND EDUCATIONAL PACKET. PT AOX3, RESP E/U ON RA, VS STABLE, DENIES PAIN AT THIS TIME. IV TO R WRIST SALINE LOCKED W/ NO ERYTHEMA OR EDEMA, PATENT AND INTACT. TRANSFERRED VIA GUERNY W/ NO ACUTE INCIDENCE.
== END 2018-12-17 15:23 | DRG 640 ==
LOC: ED 05:19 → MU 10:40
PROVIDERS: Emergency Medicine; Internal Medicine; Internal Medicine Gastroenterology; ADMIT Internal Medicine
DX: E86.0 Dehydration (principal); N17.0 Acute kidney failure with tubular necrosis; E43 Unspecified severe protein-calorie malnutrition; N39.0 Urinary tract infection, site not specified; Z68.1 Body mass index [BMI] 19.9 or less, adult; E11.43 Type 2 diabetes mellitus with diabetic autonomic (poly)neuropathy; K31.84 Gastroparesis; I10 Essential (primary) hypertension; I44.30 Unspecified atrioventricular block; E78.5 Hyperlipidemia, unspecified; M19.90 Unspecified osteoarthritis, unspecified site; Z95.0 Presence of cardiac pacemaker; Z95.2 Presence of prosthetic heart valve; Z86.73 Personal history of transient ischemic attack (TIA), and cerebral infarction without residual deficits; Z90.49 Acquired absence of other specified parts of digestive tract; Z79.4 Long term (current) use of insulin
CPT/HCPCS: 82962; 84439; 97110-GP; 97116-GP; 97530-GP; G0378; J0696; J2405; J2916; J7030; J7050; J7060; P9016; Q0092; Q0162; Q0163

== ENCOUNTER 2019-04-05 12:12 | Emergency (ER) | payer OTHER ==
[~2019-04-05] VITALS: Ht 152.4 cm; Wt 43.1 kg
[~2019-04-05 12:12] MED LIST changes: +BACLOFEN5 MG PO; +FUROSEMIDE40 MG PO; +ROC1I IV
[2019-04-05 12:44] VITALS: Ht 152.4 cm; Wt 43.1 kg
[2019-04-05 13:53] LABS: BASOPHIL % 0.2 % (0-2); PLATELET COUNT 319 x10^3mcL (130-400)
[2019-04-05 14:07] LABS: CALCIUM 9.2 mg/dL (8.5-10.1); CARBON DIOXIDE 25.6 mmol/L (21-32); CHLORIDE SERUM 98 mmol/L (98-107); CREATININE SERUM 1.2 mg/dL (0.6-1.0); GLUCOSE SERUM 252 mg/dL (74-106); POTASSIUM SERUM 3.7 mmol/L (3.5-5.1); SODIUM SERUM 136 mmol/L (136-145)
[2019-04-05 14:12] LABS: ALBUMIN 3.8 g/dL (3.4-5.0); ALKALINE PHOSPHATASE 152 U/L (46-116); ALT/SGPT 43 U/L (14-59); AST/SGOT 26 U/L (15-37); BILIRUBIN TOTAL 0.33 mg/dL (0.20-1.00); TOTAL PROTEIN, SERUM 8.4 g/dL (6.4-8.2)
[2019-04-05 14:31] LABS: UA SPECIFIC GRAVITY 1.015 (1.005-1.035); microscopic required? YES; urine erythrocyte NEGATIVE (NEGATIVE)
[2019-04-05 17:01] VITALS: BP 123/79
== END 2019-04-05 17:01 | disposition home or self-care (01) ==
LOC: ED 12:12
PROVIDERS: Emergency Medicine
DX: R53.1 Weakness (principal); R41.0 Disorientation, unspecified; I10 Essential (primary) hypertension; E11.9 Type 2 diabetes mellitus without complications; R11.0 Nausea; Z86.73 Personal history of transient ischemic attack (TIA), and cerebral infarction without residual deficits; Z95.0 Presence of cardiac pacemaker
CPT/HCPCS: 36415; 82962; 83880; Q0092

== ENCOUNTER 2020-03-04 16:14 | Emergency (ER) | payer OTHER ==
[~2020-03-04] VITALS: Ht 154.9 cm; Wt 46.3 kg
[2020-03-04 16:30] VITALS: Ht 154.9 cm; Wt 46.3 kg
[2020-03-04 17:21] LABS: BASOPHIL % 0.4 % (0-2); PLATELET COUNT 272 x10^3mcL (130-400); RED CELL DISTRIBUTION WIDTH 13.1 % (11.5-14.5)
[2020-03-04 18:20] LABS: CALCIUM 9.7 mg/dL (8.5-10.1); CARBON DIOXIDE 22.8 mmol/L (21-32); CHLORIDE SERUM 104 mmol/L (98-107); CREATININE SERUM 1.1 mg/dL (0.6-1.0); GLUCOSE SERUM 221 mg/dL (74-106); SODIUM SERUM 140 mmol/L (136-145)
[2020-03-04 18:25] LABS: ALBUMIN 4.3 g/dL (3.4-5.0); ALKALINE PHOSPHATASE 106 U/L (46-116); ALT/SGPT 30 U/L (14-59); BILIRUBIN TOTAL 0.34 mg/dL (0.20-1.00); CHOLESTEROL 152 mg/dL (<200); TOTAL PROTEIN, SERUM 7.6 g/dL (6.4-8.2)
[2020-03-04 18:27] LABS: POTASSIUM SERUM 4.6 mmol/L (3.5-5.1)
[2020-03-04 19:20] VITALS: BP 139/45
[2020-03-04 19:27] LABS: AST/SGOT 23 U/L (15-37)
== END 2020-03-04 19:15 | disposition home or self-care (01) ==
LOC: ED 16:14
PROVIDERS: Specialist
DX: R42 Dizziness and giddiness (principal); R25.1 Tremor, unspecified; I10 Essential (primary) hypertension; E11.9 Type 2 diabetes mellitus without complications; E78.00 Pure hypercholesterolemia, unspecified; M19.90 Unspecified osteoarthritis, unspecified site
CPT/HCPCS: 82962; G0480